=== PATIENT | male | born 1945 | race Caucasian/White ===

== ENCOUNTER 2018-09-25 17:18 | Inpatient (IN) ==
--- NOTE | 2018-09-25 17:24 | Emergency Department Note ---
Disposition Clinical Impression: Chest pain Qualifiers: Chest pain type: unspecified Qualified Code(s): R07.9 - Chest pain, unspecified Disposition: Admitted As Inpatient Condition: Good Referrals: Cami Jorgensen CNP [Primary Care Provider] - Time of Disposition: 19:03 General Adult HPI - General Stated complaint: CP/SOB Time Seen by Provider: 09/25/18 17:21 Source: patient Nursing Notes Reviewed: Yes Vital Signs Reviewed: Yes - History of Present Illness HPI Narrative: Male patient sitting complaints from complaining of a 2 to three-day history of left-sided chest pain. He cannot describe the type of pain. He states it is not radiating anywhere. It started whenever he was sitting in a chair resting. Does have history of congestive heart failure. Never had stents. Does have a history of hypertension was a previous smoker several years ago. He does report dyspnea on exertion states he does not walk very far anyhow secondary to his legs just being weak. Patient states that he cannot get relief from the pain with changing positions. Nothing exacerbates the pain. - Related Data Home Medications Medication Instructions Recorded Confirmed Aspirin [Lo-Dose Aspirin EC] 81 mg PO DAILY 11/20/17 07/02/18 Furosemide [Lasix] 40 mg PO BID 11/20/17 07/02/18 Gabapentin [Neurontin] 600 mg PO BID 11/20/17 07/02/18 Losartan/Hydrochlorothiazide 1 tab PO DAILY 11/20/17 07/02/18 [Losartan-Hctz 100-25 mg Tab] Metformin HCl [Glucophage] 1,000 mg PO BID 11/20/17 07/02/18 Metoprolol [Lopressor] 50 mg PO BID 11/20/17 07/02/18 Oxycodone HCl/Acetaminophen 1 tab PO Q6H PRN 11/20/17 07/02/18 [Percocet 5-325 mg Tablet] Pravastatin Sodium [Pravachol] 40 mg PO DAILY 11/20/17 07/02/18 Warfarin [Coumadin] 8 mg PO SUMOTUWETHFRSA 11/20/17 07/02/18 Carbidopa/Levodopa 25/100 [Sinemet 1 tab PO 0800,1200,1600 07/02/18 07/02/18 25/100] Cholecalciferol (D-3) [Vitamin D] 2,000 unit PO DAILY 07/02/18 07/02/18 Allergies Allergy/AdvReac Type Severity Reaction Status Date / Time fenofibrate [From Tricor] AdvReac See Verified 12/11/17 13:46 Comments naproxen AdvReac See Verified 12/11/17 13:46 Comments All systems ED: reviewed and negative except as stated. Review of Systems: As Per HPI Constitutional: Denies: fever, chills Cardiovascular: Reports: chest pain. Denies: palpitations, syncope Respiratory: Denies: cough, dyspnea Gastrointestinal: Denies: abdominal pain, nausea, vomiting, diarrhea Genitourinary: Denies: urgency, frequency Past Medical History - Past Medical History Attestation: Yes The following information was validated with the patient. Source: patient Medical history: Reports: arthritis, atrial fibrillation, cancer, CHF, diabetes, hyperlipidemia, hypertension, other Surgical history: Reports: appendectomy, cancer surgery, herniorrhaphy Psychiatric history: Reports: no psych history - Social History Smoking Status: Unknown if ever smoked Smokeless Tobacco Status: No Alcohol use: Reports: none Drug use: Reports: none Physical Exam - General Limitations: no limitations General appearance: alert, in no apparent distress - Head Head exam: atraumatic, normocephalic, normal inspection - Eye Eye exam: Present: normal appearance, PERRL, EOMI - ENT ENT exam: normal exam, normal oropharynx, mucous membranes moist - Neck Neck exam: Present: normal inspection, full ROM, trachea midline - Chest Chest inspection: Present: normal inspection, symmetric chest wall rise - Respiratory Respiratory exam: Present: normal lung sounds bilaterally. Absent: respiratory distress, accessory muscle use - Cardiovascular Cardiovascular exam: Present: normal rhythm, irregular rhythm, normal heart sounds - Abdominal Exam Abdominal exam: Present: soft, Non-Tender. Absent: tenderness, distention, guarding, rebound, rigidity, organomegaly - Extremities Exam Extremities exam: Present: normal inspection, full ROM, normal capillary refill, pedal edema (Pitting bilaterally.). Absent: tenderness - Back Exam Back exam: Present: normal inspection, full ROM. Absent: tenderness - Neurological Exam Neurological exam: Present: alert, oriented X3 - Psychiatric Psychiatric exam: Present: normal affect, normal mood - Skin Skin exam: Present: warm, dry, intact, normal color. Absent: rash, cyanosis, diaphoresis Course Course Narrative: Male patient presenting to emergency department complaining of left-sided chest pain. Cannot describe what type of pain is his. This did resolve after 2 nitroglycerin. Patient is conversant and laughing. Lung sounds are clear. He does develop mild cardiomegaly as well as pulmonary congestion on chest x-ray he does have pitting edema bilaterally to his lower extremities. This is rather significant. States he does take of "fluid pill for this." Denies any decrease in urination. EKG did show a right bundle branch block. He is in A. fib with a history of A. fib. Currently on Coumadin and is therapeutic. We will admit patient to the hospital for ACS workup. He is agreeable with this at this time. Vital Signs Temperature 97.7 F 09/25/18 17:25 Pulse Rate 75 09/25/18 17:25 Respiratory Rate 16 09/25/18 17:25 Blood Pressure 200/93 09/25/18 17:25 O2 Sat by Pulse Oximetry 92 09/25/18 17:25 Temperature 97.7 F 09/25/18 17:25 Pulse Rate 59 09/25/18 18:48 Respiratory Rate 16 09/25/18 18:48 Blood Pressure 144/72 09/25/18 18:48 O2 Sat by Pulse Oximetry 99 09/25/18 18:48 Oxygen Delivery Oxygen Delivery Room Air Medical Decision Making - Medical Records Medical records reviewed: Yes I reviewed the patient's medical records. - Lab Data Lab results reviewed: Yes I reviewed the patient's lab results. Result diagrams: 09/25/18 17:38 09/25/18 17:38 Lab Results 09/25/18 09/25/18 09/25/18 Range/Units 17:38 17:38 17:40 WBC 6.8 (4.3-11.1) K/mcL RBC 5.10 (4.19-5.50) M/mcL Hgb 14.4 (12.9-16.9) g/dL Hct 42.0 (37.5-50.1) % MCV 82.4 L (83.0-100.0) fL MCH 28.2 (28.0-33.3) pg MCHC 34.3 (31.6-35.5) g/dL RDW 15.0 H (11.5-14.5) % Plt Count 182 (140-400) K/mcL MPV 9.2 L (9.4-12.4) fL Immature Gran % 0.3 (0-4) % Seg Neutrophils % 63.6 % Lymphocytes % 21.6 % Monocytes % 9.5 % Eosinophils % 4.4 % Basophils % 0.6 % Neutrophils # 4.3 (1.6-8.9) K/mcL Lymphocytes # 1.5 (0.6-4.6) K/mcL Monocytes # 0.6 (0.0-1.3) K/mcL Eosinophils # 0.3 (0.0-0.6) K/mcL Basophils # 0.0 (0.0-0.2) K/mcL PT 31.4 H (9.4-12.1) Seconds INR 2.8 APTT 57.8 H (26.0-36.0) Seconds Sodium 137 (136-145) mEq/L Potassium 3.8 (3.5-5.1) mEq/L Chloride 98 (98-107) mEq/L Carbon Dioxide 28 (23-29) mEq/L BUN 27 H (8-23) mg/dL Creatinine 1.29 (0.70-1.30) mg/dL Est GFR ( Amer) > 60 (> 60) Est GFR (Non-Af Amer) 54 L (> 60) BUN/Creatinine Ratio 21 (6-26) Glucose 226 H (70-105) mg/dL Calculated Osmolality 296 (280-300) Calcium 9.5 (8.6-10.3) mg/dL Troponin I < 0.03 (< 0.04) ng/mL B-Natriuretic Peptide (Less than 100) pg/mL 09/25/18 Range/Units 17:40 WBC (4.3-11.1) K/mcL RBC (4.19-5.50) M/mcL Hgb (12.9-16.9) g/dL Hct (37.5-50.1) % MCV (83.0-100.0) fL MCH (28.0-33.3) pg MCHC (31.6-35.5) g/dL RDW (11.5-14.5) % Plt Count (140-400) K/mcL MPV (9.4-12.4) fL Immature Gran % (0-4) % Seg Neutrophils % % Lymphocytes % % Monocytes % % Eosinophils % % Basophils % % Neutrophils # (1.6-8.9) K/mcL Lymphocytes # (0.6-4.6) K/mcL Monocytes # (0.0-1.3) K/mcL Eosinophils # (0.0-0.6) K/mcL Basophils # (0.0-0.2) K/mcL PT (9.4-12.1) Seconds INR APTT (26.0-36.0) Seconds Sodium (136-145) mEq/L Potassium (3.5-5.1) mEq/L Chloride (98-107) mEq/L Carbon Dioxide (23-29) mEq/L BUN (8-23) mg/dL Creatinine (0.70-1.30) mg/dL Est GFR ( Amer) (> 60) Est GFR (Non-Af Amer) (> 60) BUN/Creatinine Ratio (6-26) Glucose (70-105) mg/dL Calculated Osmolality (280-300) Calcium (8.6-10.3) mg/dL Troponin I (< 0.04) ng/mL B-Natriuretic Peptide 250 H (Less than 100) pg/mL - Radiology Data Radiology results reviewed: Yes I reviewed the patient's radiology results. Chest X-Ray 09/25/18 17:38 IMPRESSION: 1. Cardiomegaly with findings suggesting mild pulmonary edema. D/ / Adelso Pires MD / Adelso Pires MD Interpreting Provider: Adelso Pires MD - EKG Data EKG #1 EKG attestation: Yes I reviewed and interpreted this EKG. EKG results narrative: A. fib at a rate of 67. MN interval is a 96. QRS duration is 125. QT is 435. QTC is 428. No signs of acute ischemia. Patient does have a right bundle branch block. Does appear this was present on previous EKG dated 05/13/2017. Attestation Statement - Attestation Attestation: Patient was seen with resident physician. I reviewed the history, physical, assessment and plan, and agree with the findings. I also personally evaluated this patient and had [id number] time with this patient. 73-year-old male presents emergency Department with chest pain. Patient states the pain started several days ago. It is more of a soreness in the left side of his chest. Pain does not radiate. Patient denies shortness of breath nausea vomiting or diarrhea. Patient states she is a history of CHF. No specific heart issues or stents. The cardiac surgery. He does have dyspnea on exertion which she says is not new for him and has not changed. He has a long history of smoking. Review of systems as above remainder negative. Physical exam vital signs are stable. ENT is unremarkable. Heart regular rhythm and rate. Lungs clear. Abdomen is soft and nontender. Extremities are unremarkable. Neurologically intact. Skin no rashes and psych normal. ED course we will treat the patient with aspirin and nitroglycerin. EKG showed no acute ischemic changes. Troponin was negative other labs are unremarkable. We will admit the patient to the hospital service for additional evaluation and treatment for chest pain. Hemodynamically the patient remained stable while in the emergency department. Symptoms were improved after 2 nitroglycerin. Considering the patient's risk factors we felt hospitalization was indicated. Hospitalist service was notified and agreed to accept the patient. Agree with resident physician assessment and plan. Heart Score - Score History: Moderately Suspicious EKG: Non Specific repolarisation Disturbance Age: Greater than 65 Risk Factors: Equal/Greater than 3 risk factor or history of atherosclerotic disease Troponin: Less than normal limit HEART Score Total: 6
[2018-09-25] MEDS ORDERED: Nitroglycerin 0.4 MG TAB.SUBL SL ONE (17:40)
[2018-09-25] MEDS ORDERED: Aspirin 81 MG TAB.CHEW PO ONE (17:40)
[2018-09-25 18:03] LABS: Basophils % 0.6 %; Eosinophils # 0.3 K/mcL (0.0-0.6); Eosinophils % 4.4 %; Hemoglobin 14.4 g/dL (12.9-16.9); Immature Granulocytes % 0.3 % (0-4); Lymphocytes # 1.5 K/mcL (0.6-4.6); Lymphocytes % 21.6 %; Mean Corpuscular HGB Conc 34.3 g/dL (31.6-35.5); Mean Corpuscular Hemoglobin 28.2 pg (28.0-33.3); Mean Corpuscular Volume 82.4 fL (83.0-100.0); Mean Platelet Volume 9.2 fL (9.4-12.4); Monocytes # 0.6 K/mcL (0.0-1.3); Monocytes % 9.5 %; Neutrophils # 4.3 K/mcL (1.6-8.9); Platelet Count 182 K/mcL (140-400); Segmented Neutrophils % 63.6 %
[2018-09-25 18:10] LABS: INR 2.8; Prothrombin Time 31.4 Seconds (9.4-12.1)
[2018-09-25 18:13] LABS: Activated Partial Thrombo Time 57.8 Seconds (26.0-36.0)
[2018-09-25 18:24] LABS: BUN/Creatinine Ratio 21 (6-26); Blood Urea Nitrogen 27 mg/dL (8-23); Calcium 9.5 mg/dL (8.6-10.3); Carbon Dioxide 28 mEq/L (23-29); Chloride 98 mEq/L (98-107); Glucose 226 mg/dL (70-105); Osmolality,Calculated 296 (280-300); Potassium 3.8 mEq/L (3.5-5.1); Sodium 137 mEq/L (136-145); eGFR For Non-African Americans 54 (> 60)
[2018-09-25 18:25] LABS: Troponin I < 0.03 ng/mL (< 0.04)
[2018-09-25] MEDS ORDERED: Dextrose Gel 15 GM/37.5 ML TUBE PO PRN ×2 (19:48)
[2018-09-25] MEDS ORDERED: *HR* Dextrose 50 % in Water (Syg) 50 ML SYRINGE IVP PRN (19:48)
--- NOTE | 2018-09-25 20:23 | Internal Med History&Physical ---
Date of Encounter: 09/25/18 Time of Encounter: 20:18 Internal Medicine - H&P: HPI Chief complaint: chest pain Admitted From: Home Plans for Post Hospital Care: Home History of present illness: Марина Stuart is a 73-year-old obese white male who has atrial fibrillation on warfarin, hypertension and type 2 diabetes presenting to the ER with the complaint of chest pain that has been present for the past 3 days. He localizes the pain to his precordium and says it is a fixed pressure sensation with no radiation and no exacerbating or ameliorating features observed. There was no prandial correlation. He felt as though it got worse even today which is what prompted him to come to the emergency room. He denied accompanying shortness of breath but does admit to increasing pedal edema. He reports ad herence to his medications. He acknowledges having had a stress test in the past but this was well over 6 years ago. He denies a history of CAD. In the ER he was seen clinically and hemodynamically stable. His chest pain resolved after 2 nitroglycerin tablets and he was also given a loading dose of aspirin. 6 EKG showed atrial fibrillation and a right bundle branch block which is unchanged from prior. He is admitted for ongoing observation. At this time he reports feeling well and has no other complaints. Past Med Surg Social Fam HX - Past Medical History Medical history: arthritis, atrial fibrillation, cancer, CHF, diabetes, hyperlipidemia, hypertension, other Psychiatric history: no psych history - Past Surgical History Surgical History: appendectomy, cancer surgery, herniorrhaphy Additional surgical history: Carpal tunnel surgery in November 2017 on both arms. - Social History Smoking Status: Unknown if ever smoked Smokeless Tobacco Status: No Alcohol use: none Drug use: none - Family History Mother Adopted: No Family Member Ethnicity: Non- Living Status: Hx Family Cardiac Disorders: No Hx Family Respiratory Disorders: No Hx Family Cancer: Yes Hx Family GI Disorders: No Hx Family Endocrine Disorder: No Hx Family Neuromuscular Disorders: No Hx Family Neurologic Disorders: No Hx Family HEENT Disorders: No Hx Family Autoimmune Disorders: No Father Adopted: No Family Member Ethnicity: Non- Living Status: Hx Family Cardiac Disorders: Yes Hx Family Respiratory Disorders: No Hx Family Cancer: No Hx Family GI Disorders: No Hx Family Endocrine Disorder: No Hx Family Neuromuscular Disorders: No Hx Family Neurologic Disorders: No Hx Family HEENT Disorders: No Hx Family Autoimmune Disorders: No Internal Medicine - H&P: Meds Aspirin [Lo-Dose Aspirin EC] 81 mg PO DAILY 11/20/17 [History] Furosemide [Lasix] 40 mg PO BID 11/20/17 [History] Gabapentin [Neurontin] 600 mg PO BID 11/20/17 [History] Losartan/Hydrochlorothiazide [Losartan-Hctz 100-25 mg Tab] 1 tab PO DAILY 11/20/17 [History] Metformin HCl [Glucophage] 1,000 mg PO BID 11/20/17 [History] Metoprolol [Lopressor] 50 mg PO BID 11/20/17 [History] Oxycodone HCl/Acetaminophen [Percocet 5-325 mg Tablet] 1 tab PO Q6H PRN 11/20/17 [History] Pravastatin Sodium [Pravachol] 40 mg PO DAILY 11/20/17 [History] Warfarin [Coumadin] 8 mg PO SUMOTUWETHFRSA 11/20/17 [History] Carbidopa/Levodopa 25/100 [Sinemet 25/100] 1 tab PO 0800,1200,1600 07/02/18 [History] Cholecalciferol (D-3) [Vitamin D] 2,000 unit PO DAILY 07/02/18 [History] Allergy/AdvReac Type Severity Reaction Status Date / Time fenofibrate [From Tricor] AdvReac See Verified 12/11/17 13:46 Comments naproxen AdvReac See Verified 12/11/17 13:46 Comments All Systems PM: A 10-system review of systems was performed and is negative for pertinent findings except as documented above in the HPI. - Constitutional Vitals: Temp Pulse Resp BP Pulse Ox 97.5 F L 58 16 184/83 96 09/25/18 20:11 09/25/18 20:11 09/25/18 20:11 09/25/18 20:11 09/25/18 20:11 Exam: Vitals: Reviewed General: Obese white male sitting up in bed in NAD Skin: Flushed, multiple excoriations. HEENT: Moist mucous membranes. No conjunctivae pallor. Neck: No lymphadenopathy. No JVD. No carotid bruits. No palpable thyroid. Chest: Normal thoracic expansion. Diminished breath sounds bilaterally. Heart: Irregularly irregular. Abdomen: soft and non-tender to palpation. Extremities: 3+ pitting edema with mild erythema bilaterally, non-tender, normothermic. Neurological: Awake, alert and oriented to person, place and time. No focal deficits. B/l hand tremor noted. Psych: Affect appropriate. Internal Med - H&P Results - Labs CBC & Chem 7: 09/25/18 17:38 09/25/18 17:38 Labs: Short CBC 09/25/18 Range/Units 17:38 WBC 6.8 (4.3-11.1) K/mcL Hgb 14.4 (12.9-16.9) g/dL Hct 42.0 (37.5-50.1) % Plt Count 182 (140-400) K/mcL Neutrophils # 4.3 (1.6-8.9) K/mcL BMP 09/25/18 17:38 Sodium 137 Potassium 3.8 Chloride 98 Carbon Dioxide 28 BUN 27 H Creatinine 1.29 Glucose 226 H Calcium 9.5 Cardiac Enzymes 09/25/18 Range/Units 17:38 Troponin I < 0.03 (< 0.04) ng/mL - Impressions ITS Impressions Chest X-Ray 09/25/18 17:38 IMPRESSION: 1. Cardiomegaly with findings suggesting mild pulmonary edema. D/ / Adelso Pires MD / Adelso Pires MD Interpreting Provider: Adelso Pires MD - Assessment and plan (1) Chest pain Current Visit: Yes Status: Acute Assessment and plan: The patient has a moderate risk of ACS based on his HEART score and warrants observation. Will place on telemetry and repeat troponins. Will also obtain a TTE in the morning and schedule him for a stress test. He has received loading dose of ASA and will continue his regular daily dose. Qualifiers: Chest pain type: unspecified Qualified Code(s): R07.9 - Chest pain, unspecified (2) Bilateral leg edema Current Visit: Yes Status: Acute Assessment and plan: Concerned that there may be a component of alberts failure given the associated shortness of breath and xray findings suggestive of pulmonary vascular congestion. BNP is only 250 but his obesity may preclude its true value. Will assess cardiac function with an echo. Start furosemide IVP 40mg BID. (3) Afib Current Visit: Yes Status: Acute Assessment and plan: On warfarin; therapeutic INR. Continue warfarin. Qualifiers: Atrial fibrillation type: chronic Qualified Code(s): I48.2 - Chronic atrial fibrillation (4) Tremor due to disorder of central nervous system Current Visit: Yes Status: Acute Assessment and plan: Unclear etiology but as per he was Rx medications for Parkinson's but has not been officially diagnosed with it. Unclear it is is helping him. (5) Diabetes Current Visit: Yes Status: Chronic Assessment and plan: He takes metformin. Will check an A1C to assess control. Place on insulin sliding scale for now. Qualifiers: Diabetes mellitus type: type 2 Diabetes mellitus [facility] insulin use: without bead cutter use Diabetes mellitus complication status: with unspecified complications Qualified Code(s): E11.8 - Type 2 diabetes mellitus with unspecified complications (6) Arthritis Current Visit: Yes Status: Chronic Assessment and plan: He is on oxycodone/apap prn. Will continue. - Time Spent With Patient Total time spent is greater than 50% in coordination of care (as documented) at patient's floor/unit and/or counseling patient: Greater than 35 minutes
[2018-09-25] MEDS ORDERED: Furosemide 40 MG TABLET PO SCH (21:00)
[2018-09-25] MEDS: Insulin LISPRO 300 UNITS/3 ML VIAL SQ SCH (22:29)
[2018-09-25] MEDS: Furosemide 40 MG/4 ML VIAL IVP SCH ×2 (22:30→22:55)
[2018-09-25] MEDS: Gabapentin 300 MG CAPSULE PO SCH (22:30)
[2018-09-26] MEDS: *HR* OxyCODONE/APAP 5/325 TABLET PO PRN ×3 (00:42→20:11)
[2018-09-26] MEDS ORDERED: Regadenoson 0.4 MG/5 ML SYRINGE IVP ONE (07:09)
[2018-09-26] MEDS ORDERED: Losartan/HCTZ 50-12.5 TABLET PO SCH (09:00)
[2018-09-26] MEDS: Insulin LISPRO 300 UNITS/3 ML VIAL SQ SCH ×4 (09:31→20:17)
[2018-09-26] MEDS: Furosemide 40 MG/4 ML VIAL IVP SCH ×2 (09:33→17:02)
[2018-09-26] MEDS: Carbidopa/Levodopa 25/100 TABLET PO SCH ×3 (09:33→17:02)
[2018-09-26] MEDS: Aspirin Enteric Coated 81 MG Tablet PO SCH (09:33)
[2018-09-26] MEDS: Gabapentin 300 MG CAPSULE PO SCH ×2 (09:34→20:11)
[2018-09-26] MEDS: Cholecalciferol (D-3) 1,000 UNIT TABLET PO SCH (09:34)
--- NOTE | 2018-09-26 09:35 | Internal Med Progress Note ---
Hospitalist Progress Note - Encounter Date of Encounter: 09/26/18 Time of Encounter: 09:28 - Subjective Interval History: Patient seen and examined this morning. No acute overnight events. Denies new complains. Currently without chest pain. Gets shortness of breath over past few days while lying flat. Denies fever, chills, N/V/D. - Exam Vitals: Temp Pulse Resp BP Pulse Ox 98.2 F 63 18 146/55 95 09/26/18 07:58 09/26/18 07:58 09/26/18 07:58 09/26/18 07:58 09/26/18 07:58 Exam: General: In no acute distress. Conversant. Obese. Respiratory exam: no accessory muscle use, rhonchi, wheezes. Rales bilaterally at base till mid lung field. Cardiovascular exam: irregular, +S1, +S2. no murmur, gallop, rubs. GI/Abdominal exam: Obese, Non-tender, Non-distended, normal bowel sounds, soft, no peritoneal signs. Extremities exam: full ROM, 3+ pedal edema b/l, no calf tenderness Neurological exam: CN II-XII intact, AO X3, no focal deficits. tremors noted Skin exam: No skin rash, ulcer, purpura or ecchymosis. - Assessment and Plan (1) Chest pain Current Visit: Yes Status: Acute (2) Bilateral leg edema Current Visit: Yes Status: Acute (3) Afib Current Visit: Yes Status: Acute (4) Tremor due to disorder of central nervous system Current Visit: Yes Status: Acute (5) Arthritis Current Visit: Yes Status: Chronic (6) Diabetes Current Visit: Yes Status: Chronic - Summary of Assessment and Plan Summary of Assessment and Plan: Atypical Chest pain - currently chest pain free - trop negative x3 - f/u TTE - c/w ASA - Will hold stress for now given CHF. Will differ stress test as outpatient Bilateral leg edema and PND - Patient in CHF with elelvated BNP and volume overload with PND - c/w IV lasix - monitor I/O and weight Afib - c/w metoprolol for rate control and AC with warfarin. pharmacy to dose warfarin CKD - creatinine appears at baseline Tremor due to disorder of central nervous system - Unclear etiology - on medications for Parkinson's - continue for now - f/u outpatient Diabetes - f/u A1C to assess control. - c/w accuchecks and sliding scale insulin Arthritis - c/w home medications - Time Spent with Patient Total time spent is greater than 50% in coordination of care (as documented) at patient's floor/unit and/or counseling patient: Internal Medicine: Result - Labs CBC & Chem 7: 09/25/18 17:38 09/25/18 17:38 Labs: Short CBC 09/25/18 Range/Units 17:38 WBC 6.8 (4.3-11.1) K/mcL Hgb 14.4 (12.9-16.9) g/dL Hct 42.0 (37.5-50.1) % Plt Count 182 (140-400) K/mcL Neutrophils # 4.3 (1.6-8.9) K/mcL BMP 09/25/18 17:38 Sodium 137 Potassium 3.8 Chloride 98 Carbon Dioxide 28 BUN 27 H Creatinine 1.29 Glucose 226 H Calcium 9.5 Cardiac Enzymes 09/25/18 09/25/18 09/26/18 Range/Units 17:38 23:45 03:49 Troponin I < 0.03 < 0.03 < 0.03 (< 0.04) ng/mL - ABG Interpretation ABG results: PT/INR, D-dimer PT 34.0 Seconds (9.4-12.1) H 09/26/18 03:49 - Impressions Impressions Chest X-Ray 09/25/18 17:38 IMPRESSION: 1. Cardiomegaly with findings suggesting mild pulmonary edema. D/ / Adelso Pires MD / Adelso Pires MD Interpreting Provider: Adelso Pires MD Consult Discharge Plan - Plan (1) Chest pain Qualifiers: Chest pain type: unspecified Qualified Code(s): R07.9 - Chest pain, unspecified (3) Afib Qualifiers: Atrial fibrillation type: chronic Qualified Code(s): I48.2 - Chronic atrial fibrillation (6) Diabetes Qualifiers: Diabetes mellitus type: type 2 Diabetes mellitus intermediate card tender insulin use: without penitentiary use Diabetes mellitus complication status: with unspecified complications Qualified Code(s): E11.8 - Type 2 diabetes mellitus with unspecified complications
[2018-09-26] MEDS ORDERED: Warfarin perPT PO PRN (18:00)
[2018-09-27 04:40] LABS: INR 1.7; Prothrombin Time 19.6 Seconds (9.4-12.1)
[2018-09-27 04:55] LABS: Calcium 9.4 mg/dL (8.6-10.3); Potassium 3.3 mEq/L (3.5-5.1)
[2018-09-27] MEDS ORDERED: Regadenoson 0.4 MG/5 ML SYRINGE IVP ONE (06:04)
[2018-09-27] MEDS: *HR* OxyCODONE/APAP 5/325 TABLET PO PRN ×2 (07:26→17:02)
[2018-09-27] MEDS: Aspirin Enteric Coated 81 MG Tablet PO SCH (09:18)
[2018-09-27] MEDS: Cholecalciferol (D-3) 1,000 UNIT TABLET PO SCH (09:18)
[2018-09-27] MEDS: Insulin LISPRO 300 UNITS/3 ML VIAL SQ SCH ×4 (09:19→20:35)
[2018-09-27] MEDS: Carbidopa/Levodopa 25/100 TABLET PO SCH ×3 (09:19→17:02)
[2018-09-27] MEDS: Gabapentin 300 MG CAPSULE PO SCH ×2 (09:19→20:33)
[2018-09-27] MEDS: Furosemide 40 MG/4 ML VIAL IVP SCH (09:19)
--- NOTE | 2018-09-27 10:40 | Internal Med Progress Note ---
Hospitalist Progress Note - Encounter Date of Encounter: 09/27/18 Time of Encounter: 08:24 - Subjective Interval History: Patient seen and examined this morning. No acute overnight events. Denies new complains. Breathing much improved. Denies chest pain, fever, chills, N/V/D. - Exam Vitals: Temp Pulse Resp BP Pulse Ox 98.0 F 59 16 136/81 97 09/27/18 07:14 09/27/18 07:14 09/27/18 07:14 09/27/18 07:14 09/27/18 09:52 Exam: General: In no acute distress. Conversant. Obese. Respiratory exam: no accessory muscle use, rhonchi, wheezes. Rales bilaterally at base till. improved aeration Cardiovascular exam: irregular, +S1, +S2. no murmur, gallop, rubs. GI/Abdominal exam: Obese, Non-tender, Non-distended, normal bowel sounds, soft, no peritoneal signs. Extremities exam: full ROM, 2+ pedal edema b/l, no calf tenderness Neurological exam: CN II-XII intact, AO X3, no focal deficits. tremors noted Skin exam: No skin rash, ulcer, purpura or ecchymosis. - Assessment and Plan (1) Chest pain Current Visit: Yes Status: Acute (2) Bilateral leg edema Current Visit: Yes Status: Acute (3) Afib Current Visit: Yes Status: Acute (4) Tremor due to disorder of central nervous system Current Visit: Yes Status: Acute (5) Arthritis Current Visit: Yes Status: Chronic (6) Diabetes Current Visit: Yes Status: Chronic - Summary of Assessment and Plan Summary of Assessment and Plan: Atypical Chest pain - currently chest pain free - trop negative x3 - f/u TTE - c/w ASA, stain - Will hold stress for now given CHF. Will differ stress test as outpatient Bilateral leg edema and PND - Acute on chronic diastolic heart failure - Patient with CHF with elelvated BNP and volume overload with PND - c/w IV lasix. Will decrease lasix today given worsening renal function - monitor I/O and weight Afib - c/w metoprolol for rate control and AC with warfarin. pharmacy to dose warfarin CKD - creatinine appears at baseline YI on CKD - Likely related to diuresis and on HCTZ/Losartan - Hold losartan and decrease lasix. Tremor due to disorder of central nervous system - Unclear etiology - on medications for Parkinson's - continue for now - f/u outpatient Diabetes - c/w accuchecks and sliding scale insulin Arthritis - c/w home medications DVT ppx - on coumadin - Time Spent with Patient Total time spent is greater than 50% in coordination of care (as documented) at patient's floor/unit and/or counseling patient: Internal Medicine: Result - Labs CBC & Chem 7: 09/25/18 17:38 09/27/18 03:21 Labs: BMP 09/27/18 03:21 Sodium 137 Potassium 3.3 L Chloride 97 L Carbon Dioxide 30 H BUN 34 H Creatinine 1.50 H Glucose 259 H Calcium 9.4 - ABG Interpretation ABG results: PT/INR, D-dimer PT 19.6 Seconds (9.4-12.1) H 09/27/18 03:21 Consult Discharge Plan - Plan Referrals: Cami Jorgensen, BONDING MACHINE TENDER [Primary Care Provider] - (1) Chest pain Qualifiers: Chest pain type: unspecified Qualified Code(s): R07.9 - Chest pain, unspecified (3) Afib Qualifiers: Atrial fibrillation type: chronic Qualified Code(s): I48.2 - Chronic atrial fibrillation (6) Diabetes Qualifiers: Diabetes mellitus type: type 2 Diabetes mellitus supervisor brew house insulin use: without senior care use Diabetes mellitus complication status: with unspecified complications Qualified Code(s): E11.8 - Type 2 diabetes mellitus with unspecified complications
[2018-09-27] MEDS ORDERED: Nitroglycerin 0.4 MG TAB.SUBL SL PRN (12:28)
--- NOTE | 2018-09-27 17:30 | Electrocardiograph Report ---
[place] [address] Test Date: 2018-09-25 Pat Name: Марина Stuart Department: EXAM10 Room: 3B Gender: M Cnc Specialist: : 1945 Requested By: Disha Freed Order Number: [id number] Reading MD: Mahi Lacey Measurements Intervals [place] Rate: 67 P: MS: QRS: -59 QRSD: 125 T: 44 QT: 435 QTc: 428 Interpretive Statements Atrial fibrillation RBBB and LAFB Electronically Signed On 09-27-2018 17:28:19 EST by Mahi Lacey
[2018-09-27] MEDS ORDERED: *HR* Warfarin 4 MG TABLET PO ONE (18:00)
[2018-09-28] MEDS: *HR* OxyCODONE/APAP 5/325 TABLET PO PRN ×2 (01:29→15:11)
[2018-09-28 04:49] LABS: INR 1.4; Prothrombin Time 16.2 Seconds (9.4-12.1)
[2018-09-28 05:06] LABS: BUN/Creatinine Ratio 24 (6-26); Blood Urea Nitrogen 33 mg/dL (8-23); Calcium 9.3 mg/dL (8.6-10.3); Carbon Dioxide 30 mEq/L (23-29); Chloride 100 mEq/L (98-107); Glucose 195 mg/dL (70-105); Osmolality,Calculated 301 (280-300); Potassium 3.9 mEq/L (3.5-5.1); Sodium 139 mEq/L (136-145); eGFR For Non-African Americans 51 (> 60)
[2018-09-28] MEDS: Gabapentin 300 MG CAPSULE PO SCH ×2 (07:54→21:07)
[2018-09-28] MEDS: Furosemide 40 MG/4 ML VIAL IVP SCH (07:54)
[2018-09-28] MEDS: Aspirin Enteric Coated 81 MG Tablet PO SCH (07:54)
[2018-09-28] MEDS: Cholecalciferol (D-3) 1,000 UNIT TABLET PO SCH (07:54)
[2018-09-28] MEDS: Insulin LISPRO 300 UNITS/3 ML VIAL SQ SCH ×4 (08:05→21:06)
[2018-09-28] MEDS: Carbidopa/Levodopa 25/100 TABLET PO SCH ×3 (08:10→17:24)
--- NOTE | 2018-09-28 10:50 | Internal Med Progress Note ---
Hospitalist Progress Note - Encounter Date of Encounter: 09/28/18 Time of Encounter: 08:59 - Subjective Interval History: Patient seen and examined this morning. No acute overnight events. Denies new complains. Breathing much improved. Denies chest pain, fever, chills, N/V/D. - Exam Vitals: Temp Pulse Resp BP Pulse Ox 98.2 F 60 15 157/80 96 09/28/18 07:07 09/28/18 07:07 09/28/18 07:07 09/28/18 07:07 09/28/18 07:07 - Assessment and Plan (1) Chest pain Current Visit: Yes Status: Acute (2) Bilateral leg edema Current Visit: Yes Status: Acute (3) Afib Current Visit: Yes Status: Acute (4) Tremor due to disorder of central nervous system Current Visit: Yes Status: Acute (5) Arthritis Current Visit: Yes Status: Chronic (6) Diabetes Current Visit: Yes Status: Chronic - Time Spent with Patient Total time spent is greater than 50% in coordination of care (as documented) at patient's floor/unit and/or counseling patient: Internal Medicine: Result - Labs CBC & Chem 7: 09/25/18 17:38 09/28/18 03:59 Labs: BMP 09/28/18 03:59 Sodium 139 Potassium 3.9 Chloride 100 Carbon Dioxide 30 H BUN 33 H Creatinine 1.36 H Glucose 195 H Calcium 9.3 Cardiac Enzymes 09/27/18 09/27/18 Range/Units 12:51 18:47 Troponin I < 0.03 < 0.03 (< 0.04) ng/mL - ABG Interpretation ABG results: PT/INR, D-dimer PT 16.2 Seconds (9.4-12.1) H 09/28/18 03:59 Consult Discharge Plan - Plan Referrals: Cami Jorgensen, IS/IT PROJECT MANAGER [Primary Care Provider] - 10/05/18 10:00 am (1) Chest pain Qualifiers: Chest pain type: unspecified Qualified Code(s): R07.9 - Chest pain, unspecified (3) Afib Qualifiers: Atrial fibrillation type: chronic Qualified Code(s): I48.2 - Chronic atrial fibrillation (6) Diabetes Qualifiers: Diabetes mellitus type: type 2 Diabetes mellitus detention insulin use: without intermediate designer use Diabetes mellitus complication status: with unspecified complications Qualified Code(s): E11.8 - Type 2 diabetes mellitus with unspecified complications
--- NOTE | 2018-09-28 11:04 | Internal Med Progress Note ---
Hospitalist Progress Note - Encounter Date of Encounter: 09/28/18 Time of Encounter: 09:20 - Subjective Interval History: Patient seen and examined this morning. No acute overnight events. Breathing improved. Denies chest pain, fever, chills, N/V/D. Leg swelling improving. - Exam Vitals: Temp Pulse Resp BP Pulse Ox 98.2 F 60 15 157/80 96 09/28/18 07:07 09/28/18 07:07 09/28/18 07:07 09/28/18 07:07 09/28/18 07:07 Exam: General: In no acute distress. Conversant. Obese. Respiratory exam: no accessory muscle use, rhonchi, wheezes. CTAB Cardiovascular exam: irregular, +S1, +S2. no murmur, gallop, rubs. GI/Abdominal exam: Obese, Non-tender, Non-distended, normal bowel sounds, soft, no peritoneal signs. Extremities exam: full ROM, 2+ pedal edema b/l, no calf tenderness Neurological exam: CN II-XII intact, AO X3, no focal deficits. tremors noted Skin exam: No skin rash, ulcer, purpura or ecchymosis. - Assessment and Plan (1) Chest pain Current Visit: Yes Status: Acute (2) Bilateral leg edema Current Visit: Yes Status: Acute (3) Afib Current Visit: Yes Status: Acute (4) Tremor due to disorder of central nervous system Current Visit: Yes Status: Acute (5) Arthritis Current Visit: Yes Status: Chronic (6) Diabetes Current Visit: Yes Status: Chronic - Summary of Assessment and Plan Summary of Assessment and Plan: Atypical Chest pain - currently chest pain free - trop negative x3 - f/u TTE - c/w ASA, stain - Will hold stress for now given CHF. Will differ stress test as outpatient Bilateral leg edema and PND - Acute on chronic diastolic heart failure - Patient with CHF with elelvated BNP and volume overload with PND - c/w IV lasix. - monitor I/O and weight Afib - c/w metoprolol for rate control and AC with warfarin. pharmacy to dose warfarin. INR subtherapeutic today. YI on CKD - Likely related to diuresis and on HCTZ/Losartan - Hold losartan - c/w lasix. Tremor due to disorder of central nervous system - Unclear etiology - on medications for Parkinson's - continue for now - f/u outpatient Diabetes - c/w accuchecks and sliding scale insulin Arthritis - c/w home medications DVT ppx - on coumadin - Time Spent with Patient Total time spent is greater than 50% in coordination of care (as documented) at patient's floor/unit and/or counseling patient: Internal Medicine: Result - Labs CBC & Chem 7: 09/25/18 17:38 09/28/18 03:59 Labs: BMP 09/28/18 03:59 Sodium 139 Potassium 3.9 Chloride 100 Carbon Dioxide 30 H BUN 33 H Creatinine 1.36 H Glucose 195 H Calcium 9.3 Cardiac Enzymes 09/27/18 09/27/18 Range/Units 12:51 18:47 Troponin I < 0.03 < 0.03 (< 0.04) ng/mL - ABG Interpretation ABG results: PT/INR, D-dimer PT 16.2 Seconds (9.4-12.1) H 09/28/18 03:59 Consult Discharge Plan - Plan Referrals: Cami Jorgensen, ANAESTHETIC TECHNICIAN [Primary Care Provider] - 10/05/18 10:00 am (1) Chest pain Qualifiers: Chest pain type: unspecified Qualified Code(s): R07.9 - Chest pain, unspecified (3) Afib Qualifiers: Atrial fibrillation type: chronic Qualified Code(s): I48.2 - Chronic atrial fibrillation (6) Diabetes Qualifiers: Diabetes mellitus type: type 2 Diabetes mellitus chcf insulin use: without intermediate manager use Diabetes mellitus complication status: with unspecified complications Qualified Code(s): E11.8 - Type 2 diabetes mellitus with unspecified complications
--- NOTE | 2018-09-28 17:30 | Electrocardiograph Report ---
[address] [address] Test Date: 2018-09-27 Pat Name: Марина Stuart Department: 113 Room: 3B Gender: M New Car Make Ready Worker: : 1945 Requested By: Geovanni Haddad Order Number: [id number] Reading MD: Lashay Brown Measurements Intervals [place] Rate: 58 P: MN: 0 QRS: 1 QRSD: 106 T: 6 QT: 440 QTc: 438 Interpretive Statements ATRIAL FIBRILLATION WITH SLOW VENTRICULAR RESPONSE INCOMPLETE RIGHT BUNDLE BRANCH BLOCK ABNORMAL RHYTHM ECG Electronically Signed On 09-28-2018 17:29:07 EST by Lashay Brown
[2018-09-28] MEDS ORDERED: *HR* Warfarin 4 MG TABLET PO ONE (18:00)
[2018-09-29] MEDS: *HR* OxyCODONE/APAP 5/325 TABLET PO PRN ×2 (02:38→08:36)
[2018-09-29 05:14] LABS: INR 1.5; Prothrombin Time 17.1 Seconds (9.4-12.1)
[2018-09-29 05:23] LABS: BUN/Creatinine Ratio 27 (6-26); Blood Urea Nitrogen 33 mg/dL (8-23); Calcium 9.6 mg/dL (8.6-10.3); Carbon Dioxide 31 mEq/L (23-29); Chloride 101 mEq/L (98-107); Glucose 202 mg/dL (70-105); Osmolality,Calculated 301 (280-300); Potassium 3.7 mEq/L (3.5-5.1); Sodium 139 mEq/L (136-145); eGFR For Non-African Americans 58 (> 60)
[2018-09-29] MEDS: Cholecalciferol (D-3) 1,000 UNIT TABLET PO SCH (08:35)
[2018-09-29] MEDS: Gabapentin 300 MG CAPSULE PO SCH (08:35)
[2018-09-29] MEDS: Insulin LISPRO 300 UNITS/3 ML VIAL SQ SCH ×2 (08:36→12:29)
[2018-09-29] MEDS: Carbidopa/Levodopa 25/100 TABLET PO SCH ×2 (08:36→12:29)
[2018-09-29] MEDS: Furosemide 40 MG/4 ML VIAL IVP SCH (08:36)
[2018-09-29] MEDS: Aspirin Enteric Coated 81 MG Tablet PO SCH (08:36)
[2018-09-29 11:02] VITALS: BP 122/73
--- NOTE | 2018-09-29 11:46 | Discharge Summary ---
- NOTES TO OUTPATIENT PROVIDER Notes to Outpatient Provider: Patient needed diuresis for few more days before stress testing and follow up with cardiology. Will need close renal monitoring and INR check in 2 days for coumadin dosing. Orders not resulted at time of discharge: Pending orders 09/30/18 04:00 INR/PT [Prothrombin Time INR] [COAG] AM 0400 10/01/18 04:00 INR/PT [Prothrombin Time INR] [COAG] AM 0400 Date of Encounter: 09/29/18 Time of Encounter: 11:40 - Discharge Diagnosis (1) Chest pain Priority: Primary Status: Acute Qualifiers: Chest pain type: unspecified Qualified Code(s): R07.9 - Chest pain, unspecified (2) Bilateral leg edema Priority: Primary Status: Acute (3) Afib Priority: Secondary Status: Acute Qualifiers: Atrial fibrillation type: chronic Qualified Code(s): I48.2 - Chronic atrial fibrillation (4) Tremor due to disorder of central nervous system Priority: Secondary Status: Acute (5) Arthritis Priority: Secondary Status: Chronic (6) Diabetes Priority: Secondary Status: Chronic Qualifiers: Diabetes mellitus type: type 2 Diabetes mellitus shelter insulin use: without vermin exterminator use Diabetes mellitus complication status: with unspecified complications Qualified Code(s): E11.8 - Type 2 diabetes mellitus with unspecified complications (7) Acute on chronic heart failure with preserved ejection fraction Priority: Primary Status: Acute Hospital course: Mr. Stuart is a 73 year old male with past medical history of atrial fibrillation, hypertension, CHF, diabetes, hyperlipidemia came in with chest pain on and off for 3 days. He initially denied any shortness of breath but having pedal Edema but later conceded that for around past 4-5 days he has been short of breath as well. He was initially admitted for stress testing for atypical chest pain after his troponin was negative. But he was found to have CHF exacerbation hence stress test was differed. Patient was diuresed with IV Lasix which initially led to YI which resolved after decreasing his Lasix. His echocardiogram showed EF of 60%, intermediate diastolic dysfunction, severe atrial enlargement, mild pulmonary hypertension. His breathing significantly improved as with clinical exam with diuresis, however he still need volume controll before stress test. Symtomatically he denies any more chest pain or shortness of breath. We will discharge with increase dose of Lasix today. Patient would need outpatient stress testing in 1-2 weeks and follow with cardiology. Patient's INR is subtherapeutic currently and will need close follow-up for renal function while being diuresed as well as INR check for Coumadin dosing. Discharge discussed with: patient, nurse - Time Spent with Patient Total time spent providing and/or coordinating discharge services: Greater than 30 minutes (38) - Discharge Medications Home Medications: Aspirin [Lo-Dose Aspirin EC] 81 mg PO DAILY 11/20/17 [History] Losartan/Hydrochlorothiazide [Losartan-Hctz 100-25 mg Tab] 1 tab PO DAILY 11/20/17 [History] Metformin HCl [Glucophage] 1,000 mg PO BID 11/20/17 [History] Metoprolol [Lopressor] 50 mg PO BID 11/20/17 [History] Oxycodone HCl/Acetaminophen [Percocet 5-325 mg Tablet] 1 tab PO Q6H PRN 11/20/17 [History] Pravastatin Sodium [Pravachol] 40 mg PO DAILY 11/20/17 [History] Warfarin [Coumadin] 8 mg PO [id number] 11/20/17 [History] Carbidopa/Levodopa 25/100 [Sinemet 25/100] 1 tab PO 0800,1200,1600 07/02/18 [History] Cholecalciferol (D-3) [Vitamin D] 2,000 unit PO DAILY 07/02/18 [History] Gabapentin [Neurontin] 300 mg PO 1200 09/26/18 [History] Gabapentin [Neurontin] 600 mg PO BID 09/26/18 [History] Furosemide [Lasix] 60 mg PO BID 7 Days #42 09/29/18 [Rx] Allergies/Adverse Reactions: Allergy/AdvReac Type Severity Reaction Status Date / Time fenofibrate [From Tricor] AdvReac See Verified 12/11/17 13:46 Comments naproxen AdvReac See Verified 12/11/17 13:46 Comments Date of admission: 09/27/18 14:38 Primary care physician: Cami Jorgensen CNP Consults: 09/27/18 08:45 Consult to Nurse Navigator [CONS] Routine Comment: CHF Discharging clinician: Geovanni Haddad - Constitutional Vitals: Temp Pulse Resp BP Pulse Ox 98.4 F 72 16 122/73 93 09/29/18 11:01 09/29/18 11:01 09/29/18 11:01 09/29/18 11:01 09/29/18 11:01 Exam: General: In no acute distress. Conversant. Obese. Respiratory exam: no accessory muscle use, rhonchi, wheezes. CTAB Cardiovascular exam: irregular, +S1, +S2. no murmur, gallop, rubs. GI/Abdominal exam: Obese, Non-tender, Non-distended, normal bowel sounds, soft, no peritoneal signs. Extremities exam: full ROM, 2+ pedal edema b/l, no calf tenderness Neurological exam: CN II-XII intact, AO X3, no focal deficits. tremors noted Skin exam: No skin rash, ulcer, purpura or ecchymosis. - Patient Status Disposition: Home, Self-Care Condition: Good - Discharge Instructions Follow Up With: Cami Jorgensen CNP [Primary Care Provider] - 10/05/18 10:00 am Forms: ED Satisfaction Letter - Diet and Activity Activity: increase activity as tolerated
[2018-09-29] MEDS ORDERED: *HR* Warfarin 4 MG TABLET PO ONE (18:00)
== END 2018-09-29 13:33 | disposition home or self-care (01) | DRG 291 ==
LOC: EMEROOARM 17:18 → 3BNU 17:18 → SUATTDRO 19:07 → 3BNU 20:08
PROVIDERS: ADMIT Hospitalist; ATTEND Internal Medicine

== ENCOUNTER 2019-11-04 15:45 | Inpatient (IN) ==
[2019-11-04] MEDS ORDERED: Azithromycin 500 MG in 0.9 % Sodium Chloride 250 ML IVPB ONE (15:52)
[2019-11-04] MEDS ORDERED: methylPREDNISolone 125 MG/2 ML VIAL IVP ONE (15:52)
[2019-11-04] MEDS ORDERED: Nitroglycerin 0.4 MG TAB.SUBL SL ONE (15:52)
[2019-11-04] MEDS ORDERED: cefTRIAXone 1,000 MG in Water for inj. (sterile) 10 ML IVP ONE (15:52)
[2019-11-04] MEDS ORDERED: Nitroglycerin 0.4 MG TAB.SUBL SL STA (15:54)
[2019-11-04] MEDS ORDERED: Ipratropium/Albuterol Neb 3 ML IH ONE (16:07)
[2019-11-04 16:13] LABS: Basophils # 0.1 K/mcL (0.0-0.2); Basophils % 0.6 %; Eosinophils # 0.2 K/mcL (0.0-0.6); Eosinophils % 2.5 %; Hematocrit 52.4 % (37.5-50.1); Hemoglobin 17.7 g/dL (12.9-16.9); Immature Granulocytes % 0.2 % (0-4); Lymphocytes # 1.7 K/mcL (0.6-4.6); Lymphocytes % 18.5 %; Mean Corpuscular HGB Conc 33.8 g/dL (31.6-35.5); Mean Corpuscular Hemoglobin 27.6 pg (28.0-33.3); Mean Corpuscular Volume 81.7 fL (83.0-100.0); Mean Platelet Volume 9.2 fL (9.4-12.4); Monocytes # 0.9 K/mcL (0.0-1.3); Monocytes % 9.8 %; Neutrophils # 6.4 K/mcL (1.6-8.9); Platelet Count 166 K/mcL (140-400); Red Blood Count 6.41 M/mcL (4.19-5.50); Red Cell Distribution Width 16.9 % (11.5-14.5); Segmented Neutrophils % 68.4 %; White Blood Count 9.3 K/mcL (4.3-11.1)
[2019-11-04 16:21] LABS: VBG HCO3 27 mEq/L (21-27); VBG PCO2 52 mmHg (41-51); VBG PH 7.33 pH Units (7.32-7.42); VBG PO2 51 mmHg (25-50)
[2019-11-04 16:25] LABS: INR 1.8; Prothrombin Time 20.2 Seconds (9.4-12.1)
[2019-11-04 16:28] LABS: Activated Partial Thrombo Time 44.8 Seconds (26.0-36.0)
[2019-11-04 16:37] LABS: Alanine Aminotransferase 7 Units/L (7-52); Albumin/Globulin Ratio 1.5 (1.1-2.2); Alkaline Phosphatase 130 Units/L (34-104); Aspartate Amino Transferase 13 Units/L (13-39); BUN/Creatinine Ratio 17 (6-26); Bilirubin,Direct 0.7 mg/dL (0.0-0.2); Bilirubin,Indirect 1.1 mg/dL (0.0-1.0); Bilirubin,Total 1.8 mg/dL (0.3-1.0); Blood Urea Nitrogen 22 mg/dL (8-23); Carbon Dioxide 27 mEq/L (23-29); Chloride 96 mEq/L (98-107); Globulin 3.4 g/dL (2.4-3.5); Glucose 235 mg/dL (70-105); Osmolality,Calculated 289 (280-300); Sodium 134 mEq/L (136-145); Total Protein 8.4 g/dL (6.4-8.9); Troponin I < 0.03 ng/mL (< 0.04); eGFR For African Americans > 60 (> 60); eGFR For Non-African Americans 52 (> 60)
[2019-11-04] MEDS ORDERED: Acetaminophen 650 MG RECTAL SUPP RC ONE (16:45)
[2019-11-04] MEDS ORDERED: Piperacillin/Tazobactam 3.375 GM in 0.9 % Sodium Chloride Mini Bag 100 ML IVPB ONE (17:00)
[2019-11-04] MEDS ORDERED: LEVOFLOXACIN 750 MG/150 ML IVPB ONE (17:00)
[2019-11-04 17:16] LABS: Magnesium 1.9 mg/dL (1.6-2.6)
[2019-11-04 18:53] LABS: Bilirubin,Urine Small (Negative); Blood,Urine Moderate (Negative); Clarity,Urine Cloudy (Clear); Color,Urine Yellow (Yellow); Glucose,Urine (UA) 100 mg/dL (Normal); Ketones,Urine Trace mg/dL (Negative); Leukocyte Esterase,Urine Negative (Negative); Nitrite,Urine Negative (Negative); Protein,Urine >=1000 mg/dL (Neg-Trace); Specific Gravity,Urine > 1.030 (1.010-1.025); Urobilinogen,Urine Normal (Normal)
[2019-11-04 18:57] LABS: Bacteria,Urine None Seen per hpf (None-Few); Hyaline Casts,Urine Moderate per lpf (None-Few); RBC,Urine TNTC per hpf (0-3); Squamous Epithelial Cell,Urine Many per lpf (None-Few); WBC,Urine 15-30 per hpf (0-3)
[2019-11-04 19:14] LABS: Sperm,Urine Present (None Seen)
[2019-11-04] MEDS ORDERED: Naloxone 0.4 MG/ML INJ IVP PRN (19:18)
[2019-11-04] MEDS ORDERED: D5% in Water 1,000 ML IVC PRN (19:26)
[2019-11-04] MEDS ORDERED: *HR* Dextrose 50 % in Water (Syg) 50 ML SYRINGE IVP PRN (19:26)
[2019-11-04] MEDS ORDERED: Dextrose Gel 15 GM/37.5 ML TUBE PO PRN ×2 (19:26)
[2019-11-04] MEDS ORDERED: *HR* FentaNYL (PF) 100 MCG/2 ML VIAL IVP ONE (19:35)
[2019-11-04] MEDS: 0.9 % Sodium Chloride 1,000 ML IVC SCH (19:46)
[2019-11-04] MEDS ORDERED: Vancomycin 1,750 MG in 0.9 % Sodium Chloride 250 ML IVPB SCH (20:00)
[2019-11-04] MEDS ORDERED: Azithromycin 500 MG in 0.9 % Sodium Chloride 250 ML IVPB SCH (20:00)
[2019-11-04] MEDS ORDERED: Ipratropium/Albuterol Neb 3 ML ONE (21:36)
[2019-11-04] MEDS: Ipratropium/Albuterol Neb 3 ML IH SCH ×2 (21:47→23:37)
[2019-11-04] MEDS: Piperacillin/Tazobactam 3.375 GM in 0.9 % Sodium Chloride Mini Bag 100 ML IVPB SCH (23:40)
[2019-11-04] MEDS: Insulin LISPRO 300 UNITS/3 ML VIAL SQ SCH (23:42)
[2019-11-05] MEDS: 0.9 % Sodium Chloride 1,000 ML IVC SCH ×2 (01:07→16:17)
[2019-11-05] MEDS ORDERED: Furosemide 40 MG/4 ML VIAL IVP ONE (03:00)
[2019-11-05] MEDS: Ipratropium/Albuterol Neb 3 ML IH SCH ×5 (04:02→20:32)
[2019-11-05] MEDS: Insulin LISPRO 300 UNITS/3 ML VIAL SQ SCH ×6 (05:42→20:43)
[2019-11-05 06:41] LABS: Basophils % 0.2 %; Hematocrit 42.9 % (37.5-50.1); Immature Granulocytes % 0.2 % (0-4); Lymphocytes # 0.5 K/mcL (0.6-4.6); Lymphocytes % 7.2 %; Mean Corpuscular HGB Conc 33.3 g/dL (31.6-35.5); Mean Corpuscular Hemoglobin 27.3 pg (28.0-33.3); Mean Corpuscular Volume 81.9 fL (83.0-100.0); Mean Platelet Volume 9.7 fL (9.4-12.4); Monocytes # 0.4 K/mcL (0.0-1.3); Monocytes % 6.9 %; Neutrophils # 5.4 K/mcL (1.6-8.9); Platelet Count 156 K/mcL (140-400); Red Blood Count 5.24 M/mcL (4.19-5.50); Red Cell Distribution Width 15.3 % (11.5-14.5); Segmented Neutrophils % 85.5 %; White Blood Count 6.3 K/mcL (4.3-11.1)
[2019-11-05 06:43] LABS: Hemoglobin 14.3 g/dL (12.9-16.9)
[2019-11-05 06:48] LABS: INR 1.7; Prothrombin Time 19.7 Seconds (9.4-12.1)
[2019-11-05 07:00] LABS: Albumin 3.9 g/dL (3.5-5.7); Albumin/Globulin Ratio 1.3 (1.1-2.2); Bilirubin,Total 1.1 mg/dL (0.3-1.0); Calcium 9.3 mg/dL (8.6-10.3); Globulin 2.9 g/dL (2.4-3.5); Potassium 3.9 mEq/L (3.5-5.1); Total Protein 6.8 g/dL (6.4-8.9)
[2019-11-05] MEDS: Piperacillin/Tazobactam 3.375 GM in 0.9 % Sodium Chloride Mini Bag 100 ML IVPB SCH ×3 (08:40→23:27)
[2019-11-05] MEDS ORDERED: Azithromycin 500 MG in 0.9 % Sodium Chloride 250 ML IVPB SCH (09:00)
[2019-11-05] MEDS ORDERED: Aminoglycoside Consult 1 EACH MC ONE (09:37)
[2019-11-05] MEDS ORDERED: Naloxone 0.4 MG/ML INJ IVP PRN (14:52)
[2019-11-05] MEDS ORDERED: Dextrose Gel 15 GM/37.5 ML TUBE PO PRN ×2 (14:52)
[2019-11-05] MEDS ORDERED: *HR* Dextrose 50 % in Water (Syg) 50 ML SYRINGE IVP PRN (14:52)
[2019-11-05] MEDS ORDERED: D5% in Water 1,000 ML IVC PRN (14:52)
[2019-11-05] MEDS: Carbidopa/Levodopa 25/100 TABLET PO SCH (16:43)
[2019-11-05] MEDS: *HR* OxyCODONE/APAP 5/325 TABLET PO PRN ×2 (16:54→23:28)
[2019-11-05] MEDS ORDERED: *HR* Warfarin 4 MG TABLET PO ONE ×2 (18:00)
[2019-11-05] MEDS ORDERED: Warfarin perPT PO PRN ×2 (18:00)
[2019-11-05] MEDS: Gabapentin 300 MG CAPSULE PO SCH (21:48)
[2019-11-06] MEDS: Ipratropium/Albuterol Neb 3 ML IH SCH ×7 (00:21→23:37)
[2019-11-06 01:18] LABS: Basophils % 0.2 %; Eosinophils % 0.4 %; Hematocrit 38.9 % (37.5-50.1); Hemoglobin 13.3 g/dL (12.9-16.9); Immature Granulocytes % 0.2 % (0-4); Lymphocytes # 0.9 K/mcL (0.6-4.6); Lymphocytes % 10.9 %; Mean Corpuscular HGB Conc 34.2 g/dL (31.6-35.5); Mean Corpuscular Hemoglobin 27.9 pg (28.0-33.3); Mean Corpuscular Volume 81.6 fL (83.0-100.0); Mean Platelet Volume 9.2 fL (9.4-12.4); Monocytes % 12.4 %; Neutrophils # 6.2 K/mcL (1.6-8.9); Platelet Count 166 K/mcL (140-400); Red Blood Count 4.77 M/mcL (4.19-5.50); Red Cell Distribution Width 15.4 % (11.5-14.5); Segmented Neutrophils % 75.9 %; White Blood Count 8.2 K/mcL (4.3-11.1)
[2019-11-06 01:37] LABS: Albumin 3.6 g/dL (3.5-5.7); Albumin/Globulin Ratio 1.5 (1.1-2.2); Bilirubin,Total 0.8 mg/dL (0.3-1.0); Calcium 8.9 mg/dL (8.6-10.3); Globulin 2.4 g/dL (2.4-3.5); Phosphorous 4.4 mg/dL (2.7-4.5); Potassium 3.5 mEq/L (3.5-5.1)
[2019-11-06] MEDS: *HR* OxyCODONE/APAP 5/325 TABLET PO PRN ×2 (06:23→22:26)
[2019-11-06] MEDS: Piperacillin/Tazobactam 3.375 GM in 0.9 % Sodium Chloride Mini Bag 100 ML IVPB SCH ×3 (08:58→23:51)
[2019-11-06] MEDS: Gabapentin 300 MG CAPSULE PO SCH ×3 (09:03→20:16)
[2019-11-06] MEDS: Cholecalciferol (D-3) 1,000 UNIT (25MCG) TABLET PO SCH (09:03)
[2019-11-06] MEDS: Aspirin Enteric Coated 81 MG Tablet PO SCH (09:03)
[2019-11-06] MEDS: Insulin LISPRO 300 UNITS/3 ML VIAL SQ SCH ×4 (09:03→20:18)
[2019-11-06] MEDS: Isosorbide MONOnitrate (24 HR) 60 MG TAB.ER.24H PO SCH (09:04)
[2019-11-06] MEDS: 0.9 % Sodium Chloride 1,000 ML IVC SCH ×2 (09:04→16:44)
[2019-11-06] MEDS: Azithromycin 500 MG in 0.9 % Sodium Chloride 250 ML IVPB SCH (09:08)
[2019-11-06] MEDS: Carbidopa/Levodopa 25/100 TABLET PO SCH ×3 (09:08→16:44)
[2019-11-06 13:54] LABS: Bilirubin,Urine Small (Negative); Blood,Urine Large (Negative); Clarity,Urine Turbid (Clear); Color,Urine Dark Yellow (Yellow); Glucose,Urine (UA) 100 mg/dL (Normal); Ketones,Urine Trace mg/dL (Negative); Leukocyte Esterase,Urine Small (Negative); Nitrite,Urine Negative (Negative); PH,Urine 5.5 pH Units (5.0-8.0); Protein,Urine >=300 mg/dL (Neg-Trace); Specific Gravity,Urine 1.022 (1.010-1.025); Urobilinogen,Urine Normal (Normal)
[2019-11-06 14:18] LABS: Granular Casts,Urine Few per lpf (None Seen)
[2019-11-06 14:19] LABS: Amorphous Sediment,Urine Moderate per hpf (Few); RBC,Urine TNTC per hpf (0-3); Squamous Epithelial Cell,Urine Few per lpf (None-Few)
[2019-11-06 14:20] LABS: Mucus,Urine Few per lpf (Few)
[2019-11-06 14:21] LABS: Bacteria,Urine Moderate per hpf (None-Few)
[2019-11-06 15:14] LABS: Protein/Creatinine Ratio,Urine 2.4 mg/mg (0.00-0.20)
[2019-11-06] MEDS ORDERED: *HR* Warfarin 4 MG TABLET PO ONE (18:00)
[2019-11-07] MEDS: 0.9 % Sodium Chloride 1,000 ML IVC SCH ×4 (00:47→21:09)
[2019-11-07] MEDS: Ipratropium/Albuterol Neb 3 ML IH SCH ×5 (04:07→20:37)
[2019-11-07 05:18] LABS: INR 2.2; Prothrombin Time 25.1 Seconds (9.4-12.1)
[2019-11-07 05:43] LABS: Troponin I 0.1 ng/mL (< 0.04)
[2019-11-07 05:50] LABS: Thyroid Stimulating Hormone 1.433 mcIU/mL (0.340-5.600)
[2019-11-07 09:04] LABS: Basophils % 0.6 %; Eosinophils # 0.3 K/mcL (0.0-0.6); Eosinophils % 6.9 %; Hematocrit 40.6 % (37.5-50.1); Hemoglobin 13.3 g/dL (12.9-16.9); Immature Granulocytes % 0.4 % (0-4); Lymphocytes # 0.7 K/mcL (0.6-4.6); Lymphocytes % 14.9 %; Mean Corpuscular HGB Conc 32.8 g/dL (31.6-35.5); Mean Corpuscular Hemoglobin 27.5 pg (28.0-33.3); Mean Corpuscular Volume 83.9 fL (83.0-100.0); Mean Platelet Volume 9.1 fL (9.4-12.4); Monocytes # 0.8 K/mcL (0.0-1.3); Monocytes % 16.7 %; Platelet Count 147 K/mcL (140-400); Red Blood Count 4.84 M/mcL (4.19-5.50); Red Cell Distribution Width 15.5 % (11.5-14.5); Segmented Neutrophils % 60.5 %; White Blood Count 4.9 K/mcL (4.3-11.1)
[2019-11-07 09:11] LABS: Calcium 8.6 mg/dL (8.6-10.3)
[2019-11-07] MEDS: Aspirin Enteric Coated 81 MG Tablet PO SCH (10:02)
[2019-11-07] MEDS: Carbidopa/Levodopa 25/100 TABLET PO SCH ×3 (10:02→18:05)
[2019-11-07] MEDS: Isosorbide MONOnitrate (24 HR) 60 MG TAB.ER.24H PO SCH (10:02)
[2019-11-07] MEDS: Cholecalciferol (D-3) 1,000 UNIT (25MCG) TABLET PO SCH (10:03)
[2019-11-07] MEDS: Gabapentin 300 MG CAPSULE PO SCH ×3 (10:03→20:58)
[2019-11-07] MEDS: Insulin LISPRO 300 UNITS/3 ML VIAL SQ SCH ×4 (10:04→20:57)
[2019-11-07] MEDS: Azithromycin 500 MG in 0.9 % Sodium Chloride 250 ML IVPB SCH (10:10)
[2019-11-07] MEDS ORDERED: 0.9 % Sodium Chloride 1,000 ML IVC ONE (10:19)
[2019-11-07] MEDS: Piperacillin/Tazobactam 3.375 GM in 0.9 % Sodium Chloride Mini Bag 100 ML IVPB SCH ×2 (11:48→23:29)
[2019-11-07] MEDS ORDERED: *HR* Warfarin 3 MG TABLET PO ONE (18:00)
[2019-11-07] MEDS: Menthol 9.1 MG LOZENGE PO PRN (23:33)
[2019-11-07] MEDS: *HR* OxyCODONE/APAP 5/325 TABLET PO PRN (23:33)
[2019-11-08] MEDS: Ipratropium/Albuterol Neb 3 ML IH SCH ×7 (00:17→23:58)
[2019-11-08 04:35] LABS: Basophils % 0.4 %; Eosinophils # 0.4 K/mcL (0.0-0.6); Eosinophils % 8.6 %; Hematocrit 38.7 % (37.5-50.1); Hemoglobin 12.8 g/dL (12.9-16.9); Immature Granulocytes % 0.4 % (0-4); Lymphocytes % 21.4 %; Mean Corpuscular HGB Conc 33.1 g/dL (31.6-35.5); Mean Corpuscular Hemoglobin 27.5 pg (28.0-33.3); Mean Corpuscular Volume 83.2 fL (83.0-100.0); Mean Platelet Volume 8.7 fL (9.4-12.4); Monocytes # 0.7 K/mcL (0.0-1.3); Monocytes % 14.6 %; Neutrophils # 2.5 K/mcL (1.6-8.9); Platelet Count 132 K/mcL (140-400); Red Blood Count 4.65 M/mcL (4.19-5.50); Red Cell Distribution Width 15.4 % (11.5-14.5); Segmented Neutrophils % 54.6 %; White Blood Count 4.5 K/mcL (4.3-11.1)
[2019-11-08 04:50] LABS: INR 2.6; Prothrombin Time 29.9 Seconds (9.4-12.1)
[2019-11-08 04:54] LABS: Magnesium 2.1 mg/dL (1.6-2.6); Phosphorous 5.5 mg/dL (2.7-4.5)
[2019-11-08] MEDS: 0.9 % Sodium Chloride 1,000 ML IVC SCH (05:30)
[2019-11-08] MEDS ORDERED: 0.9 % Sodium Chloride 1,000 ML IVC ONE (07:32)
[2019-11-08] MEDS: Insulin LISPRO 300 UNITS/3 ML VIAL SQ SCH ×4 (07:36→21:14)
[2019-11-08] MEDS: Azithromycin 500 MG in 0.9 % Sodium Chloride 250 ML IVPB SCH (08:09)
[2019-11-08] MEDS: Cholecalciferol (D-3) 1,000 UNIT (25MCG) TABLET PO SCH (08:09)
[2019-11-08] MEDS: Isosorbide MONOnitrate (24 HR) 60 MG TAB.ER.24H PO SCH (08:09)
[2019-11-08] MEDS: Carbidopa/Levodopa 25/100 TABLET PO SCH ×3 (08:09→17:14)
[2019-11-08] MEDS: Aspirin Enteric Coated 81 MG Tablet PO SCH (08:09)
[2019-11-08 10:53] LABS: Complement C3 97 mg/dL (87-200)
[2019-11-08] MEDS: Piperacillin/Tazobactam 3.375 GM in 0.9 % Sodium Chloride Mini Bag 100 ML IVPB SCH (11:40)
[2019-11-08 11:49] LABS: Bilirubin,Urine Negative (Negative); Blood,Urine Large (Negative); Clarity,Urine Cloudy (Clear); Glucose,Urine (UA) Normal (Normal); Ketones,Urine Negative (Negative); Leukocyte Esterase,Urine Small (Negative); Nitrite,Urine Negative (Negative); PH,Urine 5.5 pH Units (5.0-8.0); Protein,Urine 100 mg/dL (Neg-Trace); Specific Gravity,Urine 1.014 (1.010-1.025); Urobilinogen,Urine Normal (Normal)
[2019-11-08 11:51] LABS: RBC,Urine TNTC per hpf (0-3); Squamous Epithelial Cell,Urine Many per lpf (None-Few); WBC,Urine 15-30 per hpf (0-3)
[2019-11-08 11:52] LABS: Color,Urine Pink (Yellow)
[2019-11-08 12:09] LABS: Bacteria,Urine Few per hpf (None-Few)
[2019-11-08] MEDS: Menthol 9.1 MG LOZENGE PO PRN (14:44)
[2019-11-08] MEDS ORDERED: *HR* Warfarin 4 MG TABLET PO ONE (18:00)
[2019-11-08] MEDS ORDERED: *HR* OxyCODONE/APAP 5/325 TABLET PO ONE (18:34)
[2019-11-08] MEDS: *HR* OxyCODONE/APAP 5/325 TABLET PO PRN (18:37)
[2019-11-08] MEDS: Gabapentin 300 MG CAPSULE PO SCH (21:14)
[2019-11-09] MEDS: Piperacillin/Tazobactam 3.375 GM in 0.9 % Sodium Chloride Mini Bag 100 ML IVPB SCH ×2 (00:33→12:03)
[2019-11-09] MEDS: Ipratropium/Albuterol Neb 3 ML IH SCH ×6 (03:51→23:38)
[2019-11-09 04:35] LABS: INR 2.5
[2019-11-09 04:37] LABS: Basophils % 0.5 %; Eosinophils # 0.3 K/mcL (0.0-0.6); Eosinophils % 5.5 %; Hematocrit 38.1 % (37.5-50.1); Immature Granulocytes % 0.4 % (0-4); Lymphocytes # 0.9 K/mcL (0.6-4.6); Lymphocytes % 15.1 %; Mean Corpuscular HGB Conc 34.1 g/dL (31.6-35.5); Mean Corpuscular Hemoglobin 28.1 pg (28.0-33.3); Mean Corpuscular Volume 82.5 fL (83.0-100.0); Mean Platelet Volume 8.8 fL (9.4-12.4); Monocytes # 0.7 K/mcL (0.0-1.3); Monocytes % 12.9 %; Neutrophils # 3.7 K/mcL (1.6-8.9); Platelet Count 120 K/mcL (140-400); Red Blood Count 4.62 M/mcL (4.19-5.50); Red Cell Distribution Width 15.2 % (11.5-14.5); Segmented Neutrophils % 65.6 %; White Blood Count 5.6 K/mcL (4.3-11.1)
[2019-11-09 05:00] LABS: Calcium 8.4 mg/dL (8.6-10.3); Magnesium 2.2 mg/dL (1.6-2.6); Phosphorous 6.4 mg/dL (2.7-4.5); Potassium 4.2 mEq/L (3.5-5.1)
[2019-11-09] MEDS: Insulin LISPRO 300 UNITS/3 ML VIAL SQ SCH ×4 (08:45→21:28)
[2019-11-09] MEDS: Carbidopa/Levodopa 25/100 TABLET PO SCH ×3 (08:46→15:46)
[2019-11-09] MEDS: Isosorbide MONOnitrate (24 HR) 60 MG TAB.ER.24H PO SCH (08:46)
[2019-11-09] MEDS: Cholecalciferol (D-3) 1,000 UNIT (25MCG) TABLET PO SCH (08:46)
[2019-11-09] MEDS: Aspirin Enteric Coated 81 MG Tablet PO SCH (08:46)
[2019-11-09] MEDS ORDERED: Benzonatate 100 MG CAPSULE PO PRN ×2 (09:49→10:36)
[2019-11-09] MEDS: Benzonatate 100 MG CAPSULE PO SCH ×3 (12:03→21:31)
[2019-11-09] MEDS: *HR* OxyCODONE/APAP 5/325 TABLET PO PRN (19:30)
[2019-11-09] MEDS: Gabapentin 300 MG CAPSULE PO SCH (21:31)
[2019-11-10] MEDS: Piperacillin/Tazobactam 3.375 GM in 0.9 % Sodium Chloride Mini Bag 100 ML IVPB SCH ×2 (00:07→12:32)
[2019-11-10] MEDS: Ipratropium/Albuterol Neb 3 ML IH SCH ×6 (03:23→23:46)
[2019-11-10 04:31] LABS: INR 2.3; Prothrombin Time 25.6 Seconds (9.4-12.1)
[2019-11-10 04:52] LABS: Basophils % 0.6 %; Eosinophils # 0.3 K/mcL (0.0-0.6); Eosinophils % 4.2 %; Hematocrit 40.8 % (37.5-50.1); Hemoglobin 13.8 g/dL (12.9-16.9); Immature Granulocytes % 0.6 % (0-4); Lymphocytes # 0.9 K/mcL (0.6-4.6); Mean Corpuscular HGB Conc 33.8 g/dL (31.6-35.5); Mean Corpuscular Hemoglobin 28.1 pg (28.0-33.3); Mean Corpuscular Volume 83.1 fL (83.0-100.0); Mean Platelet Volume 9.4 fL (9.4-12.4); Monocytes # 0.9 K/mcL (0.0-1.3); Monocytes % 13.2 %; Platelet Count 139 K/mcL (140-400); Red Blood Count 4.91 M/mcL (4.19-5.50); Segmented Neutrophils % 69.4 %; White Blood Count 7.1 K/mcL (4.3-11.1)
[2019-11-10 05:08] LABS: Calcium 8.4 mg/dL (8.6-10.3); Magnesium 2.3 mg/dL (1.6-2.6); Phosphorous 6.4 mg/dL (2.7-4.5); Potassium 4.4 mEq/L (3.5-5.1)
[2019-11-10] MEDS ORDERED: 0.9 % Sodium Chloride 250 ML IVC SCH (08:00)
[2019-11-10] MEDS: Insulin LISPRO 300 UNITS/3 ML VIAL SQ SCH ×4 (08:00→21:24)
[2019-11-10] MEDS: Isosorbide MONOnitrate (24 HR) 60 MG TAB.ER.24H PO SCH (09:44)
[2019-11-10] MEDS: Aspirin Enteric Coated 81 MG Tablet PO SCH (09:44)
[2019-11-10] MEDS: Cholecalciferol (D-3) 1,000 UNIT (25MCG) TABLET PO SCH (09:44)
[2019-11-10] MEDS: Benzonatate 100 MG CAPSULE PO SCH ×3 (09:44→21:23)
[2019-11-10] MEDS: Carbidopa/Levodopa 25/100 TABLET PO SCH ×3 (09:51→17:56)
[2019-11-10] MEDS ORDERED: *HR* Phytonadione 5 MG TABLET PO ONE (10:36)
[2019-11-10] MEDS: Menthol 9.1 MG LOZENGE PO PRN (12:29)
[2019-11-10] MEDS: *HR* OxyCODONE/APAP 5/325 TABLET PO PRN ×2 (12:31→16:53)
[2019-11-10 14:14] LABS: ANA IgG by ELISA NONE DETECTED (None Detected); Serine Protease-3 Antibody 4 AU/mL (0-19)
[2019-11-10 16:51] LABS: Bilirubin,Urine Negative (Negative); Blood,Urine Large (Negative); Clarity,Urine Cloudy (Clear); Color,Urine Yellow (Yellow); Glucose,Urine (UA) Normal (Normal); Ketones,Urine Negative (Negative); Leukocyte Esterase,Urine Negative (Negative); Nitrite,Urine Negative (Negative); PH,Urine 5.5 pH Units (5.0-8.0); Protein,Urine 100 mg/dL (Neg-Trace); Specific Gravity,Urine 1.016 (1.010-1.025); Urobilinogen,Urine Normal (Normal)
[2019-11-10 16:54] LABS: Bacteria,Urine None Seen per hpf (None-Few); Hyaline Casts,Urine None Seen per lpf (None-Few); Squamous Epithelial Cell,Urine Moderate per lpf (None-Few); WBC,Urine 0-3 per hpf (0-3)
[2019-11-10 18:07] LABS: RBC,Urine 15-30 per hpf (0-3)
[2019-11-10] MEDS ORDERED: Furosemide 40 MG/4 ML VIAL IVP ONE (18:26)
[2019-11-10] MEDS ORDERED: Albumin 25% 25gram/100mL 25 GM/100 ML IV.SOLN IVPB ONE (18:26)
[2019-11-10 19:08] LABS: Kappa Qnt Free Light Chains 92.61 mg/L (3.30-19.40); Lambda Qnt Free Light Chains 33.82 mg/L (5.71-26.30)
[2019-11-10 23:15] LABS: INR 1.8; Prothrombin Time 20.6 Seconds (9.4-12.1)
[2019-11-11] MEDS ORDERED: 0.9 % Sodium Chloride 250 ML ONE (01:37)
[2019-11-11] MEDS: Ipratropium/Albuterol Neb 3 ML IH SCH ×5 (03:34→20:13)
[2019-11-11 06:39] LABS: Basophils % 0.3 %; Eosinophils # 0.2 K/mcL (0.0-0.6); Eosinophils % 2.7 %; Hematocrit 37.4 % (37.5-50.1); Hemoglobin 12.5 g/dL (12.9-16.9); Immature Granulocytes % 0.8 % (0-4); Lymphocytes # 0.8 K/mcL (0.6-4.6); Lymphocytes % 12.7 %; Mean Corpuscular HGB Conc 33.4 g/dL (31.6-35.5); Mean Corpuscular Hemoglobin 27.4 pg (28.0-33.3); Mean Corpuscular Volume 81.8 fL (83.0-100.0); Mean Platelet Volume 9.1 fL (9.4-12.4); Monocytes # 0.9 K/mcL (0.0-1.3); Monocytes % 14.4 %; Neutrophils # 4.5 K/mcL (1.6-8.9); Platelet Count 158 K/mcL (140-400); Red Blood Count 4.57 M/mcL (4.19-5.50); Red Cell Distribution Width 14.6 % (11.5-14.5); Segmented Neutrophils % 69.1 %; White Blood Count 6.6 K/mcL (4.3-11.1)
[2019-11-11 06:45] LABS: INR 1.5
[2019-11-11 07:07] LABS: Calcium 8.9 mg/dL (8.6-10.3); Magnesium 2.2 mg/dL (1.6-2.6); Phosphorous 6.7 mg/dL (2.7-4.5); Potassium 4.2 mEq/L (3.5-5.1)
[2019-11-11] MEDS: Isosorbide MONOnitrate (24 HR) 60 MG TAB.ER.24H PO SCH (08:18)
[2019-11-11] MEDS: Cholecalciferol (D-3) 1,000 UNIT (25MCG) TABLET PO SCH (08:18)
[2019-11-11] MEDS: Aspirin Enteric Coated 81 MG Tablet PO SCH (08:18)
[2019-11-11] MEDS: Benzonatate 100 MG CAPSULE PO SCH ×3 (08:19→21:10)
[2019-11-11] MEDS: Insulin LISPRO 300 UNITS/3 ML VIAL SQ SCH ×4 (08:19→21:10)
[2019-11-11] MEDS: Carbidopa/Levodopa 25/100 TABLET PO SCH ×3 (08:20→16:39)
[2019-11-11] MEDS ORDERED: 0.9 % Sodium Chloride 250 ML IVC PRN (08:54)
[2019-11-11 09:00] LABS: Alpha 2 Globulin (PEP) 0.68 g/dL (0.48-1.05); Beta Globulin (PEP) 0.66 g/dL (0.48-1.10)
[2019-11-11] MEDS ORDERED: 0.9 % Sodium Chloride 1,000 ML PRIME SCH (09:00)
[2019-11-11 12:22] LABS: Hepatitis B Surface Antibody 3.41 mIU/mL
[2019-11-11 12:24] LABS: Urine Collection Volume RANDOM mL
[2019-11-11 12:34] LABS: Hepatitis B Surface Antigen Nonreactive (Nonreactive)
[2019-11-11] MEDS ORDERED: 0.9 % Sodium Chloride 500 ML ONE (13:09)
[2019-11-11] MEDS ORDERED: *HR* Heparin 5,000 UNIT/ML VIAL ONE (14:02)
[2019-11-11 14:22] LABS: IFE Reflexed NOT DONE
[2019-11-11] MEDS ORDERED: *HR* Promethazine 25 MG/ML VIAL IVP ONE (21:13)
[2019-11-12] MEDS: Ipratropium/Albuterol Neb 3 ML IH SCH ×6 (00:04→20:16)
[2019-11-12 04:04] LABS: Basophils % 0.3 %; Eosinophils # 0.1 K/mcL (0.0-0.6); Hematocrit 35.2 % (37.5-50.1); Hemoglobin 12.1 g/dL (12.9-16.9); Immature Granulocytes % 0.4 % (0-4); Lymphocytes # 0.7 K/mcL (0.6-4.6); Lymphocytes % 9.7 %; Mean Corpuscular HGB Conc 34.4 g/dL (31.6-35.5); Mean Corpuscular Volume 81.5 fL (83.0-100.0); Mean Platelet Volume 9.3 fL (9.4-12.4); Monocytes # 0.9 K/mcL (0.0-1.3); Monocytes % 11.9 %; Neutrophils # 5.5 K/mcL (1.6-8.9); Platelet Count 198 K/mcL (140-400); Red Blood Count 4.32 M/mcL (4.19-5.50); Red Cell Distribution Width 14.6 % (11.5-14.5); Segmented Neutrophils % 76.7 %; White Blood Count 7.1 K/mcL (4.3-11.1)
[2019-11-12 04:12] LABS: INR 1.3; Prothrombin Time 15.3 Seconds (9.4-12.1)
[2019-11-12 04:23] LABS: Calcium 8.9 mg/dL (8.6-10.3); Magnesium 2.2 mg/dL (1.6-2.6)
[2019-11-12] MEDS ORDERED: 0.9 % Sodium Chloride 250 ML IVC PRN (06:15)
[2019-11-12] MEDS: Benzonatate 100 MG CAPSULE PO SCH ×3 (09:49→21:01)
[2019-11-12] MEDS: Cholecalciferol (D-3) 1,000 UNIT (25MCG) TABLET PO SCH (09:49)
[2019-11-12] MEDS: Aspirin Enteric Coated 81 MG Tablet PO SCH (09:49)
[2019-11-12] MEDS: Insulin LISPRO 300 UNITS/3 ML VIAL SQ SCH ×4 (09:50→20:46)
[2019-11-12] MEDS: Carbidopa/Levodopa 25/100 TABLET PO SCH ×3 (09:51→16:21)
[2019-11-12] MEDS: Isosorbide MONOnitrate (24 HR) 60 MG TAB.ER.24H PO SCH (10:29)
[2019-11-12] MEDS ORDERED: *HR* Heparin 5,000 UNIT/ML VIAL IVP ONE (11:11)
[2019-11-12] MEDS ORDERED: *HR* Heparin 10,000 UNIT/10 ML VIAL IV PRN (12:11)
[2019-11-12] MEDS: Heparin 25,000 UNIT/250 ML D5W 25,000 UNIT/250 ML IV.SOLN IVC SCH (12:25)
[2019-11-12 13:50] LABS: Hematocrit 37.7 % (37.5-50.1); Hemoglobin 12.8 g/dL (12.9-16.9); Mean Corpuscular Hemoglobin 27.9 pg (28.0-33.3); Mean Corpuscular Volume 82.1 fL (83.0-100.0); Mean Platelet Volume 9.1 fL (9.4-12.4); Platelet Count 220 K/mcL (140-400); Red Blood Count 4.59 M/mcL (4.19-5.50); Red Cell Distribution Width 14.6 % (11.5-14.5); White Blood Count 6.7 K/mcL (4.3-11.1)
[2019-11-12 13:59] LABS: INR 1.4; Prothrombin Time 16.2 Seconds (9.4-12.1)
[2019-11-12 14:07] LABS: Heparin anti-factor XA UFH 1.16 IU/mL (0.30-0.70)
[2019-11-12] MEDS: *HR* Heparin 5,000 UNIT/ML VIAL IVP PRN (21:00)
[2019-11-13] MEDS: Heparin 25,000 UNIT/250 ML D5W 25,000 UNIT/250 ML IV.SOLN IVC SCH ×2 (03:48→15:50)
[2019-11-13] MEDS: Ipratropium/Albuterol Neb 3 ML IH SCH ×6 (04:02→20:10)
[2019-11-13 04:05] LABS: Basophils % 0.5 %; Eosinophils # 0.2 K/mcL (0.0-0.6); Eosinophils % 3.4 %; Hematocrit 35.2 % (37.5-50.1); Hemoglobin 11.7 g/dL (12.9-16.9); Immature Granulocytes % 0.6 % (0-4); Lymphocytes # 0.7 K/mcL (0.6-4.6); Lymphocytes % 10.6 %; Mean Corpuscular HGB Conc 33.2 g/dL (31.6-35.5); Mean Corpuscular Volume 81.3 fL (83.0-100.0); Mean Platelet Volume 9.1 fL (9.4-12.4); Monocytes # 0.7 K/mcL (0.0-1.3); Monocytes % 11.4 %; Neutrophils # 4.6 K/mcL (1.6-8.9); Platelet Count 250 K/mcL (140-400); Red Blood Count 4.33 M/mcL (4.19-5.50); Red Cell Distribution Width 14.5 % (11.5-14.5); Segmented Neutrophils % 73.5 %; White Blood Count 6.2 K/mcL (4.3-11.1)
[2019-11-13 04:09] LABS: INR 1.3; Prothrombin Time 14.5 Seconds (9.4-12.1)
[2019-11-13] MEDS: *HR* Heparin 5,000 UNIT/ML VIAL IVP PRN ×2 (04:23→12:31)
[2019-11-13 04:25] LABS: Calcium 8.9 mg/dL (8.6-10.3); Magnesium 2.1 mg/dL (1.6-2.6); Phosphorous 4.3 mg/dL (2.7-4.5); Potassium 3.5 mEq/L (3.5-5.1)
[2019-11-13] MEDS: Benzonatate 100 MG CAPSULE PO SCH ×3 (08:54→20:26)
[2019-11-13] MEDS: Carbidopa/Levodopa 25/100 TABLET PO SCH ×3 (08:54→15:49)
[2019-11-13] MEDS: Isosorbide MONOnitrate (24 HR) 60 MG TAB.ER.24H PO SCH (08:55)
[2019-11-13] MEDS: Insulin LISPRO 300 UNITS/3 ML VIAL SQ SCH ×4 (08:55→20:58)
[2019-11-13] MEDS: Cholecalciferol (D-3) 1,000 UNIT (25MCG) TABLET PO SCH (08:55)
[2019-11-13] MEDS: Aspirin Enteric Coated 81 MG Tablet PO SCH (08:55)
[2019-11-13] MEDS: Furosemide 40 MG TABLET PO SCH ×2 (10:05→15:49)
[2019-11-13] MEDS: *HR* OxyCODONE Immed Rel 5 MG TABLET PO PRN (22:28)
[2019-11-14] MEDS: Heparin 25,000 UNIT/250 ML D5W 25,000 UNIT/250 ML IV.SOLN IVC SCH ×4 (00:07→19:33)
[2019-11-14] MEDS: Ipratropium/Albuterol Neb 3 ML IH SCH ×7 (00:13→23:52)
[2019-11-14 04:35] LABS: Basophils % 0.6 %; Eosinophils # 0.3 K/mcL (0.0-0.6); Eosinophils % 4.9 %; Hematocrit 34.6 % (37.5-50.1); Hemoglobin 11.6 g/dL (12.9-16.9); Immature Granulocytes % 0.5 % (0-4); Lymphocytes # 0.8 K/mcL (0.6-4.6); Lymphocytes % 11.7 %; Mean Corpuscular HGB Conc 33.5 g/dL (31.6-35.5); Mean Corpuscular Hemoglobin 27.6 pg (28.0-33.3); Mean Corpuscular Volume 82.4 fL (83.0-100.0); Mean Platelet Volume 8.9 fL (9.4-12.4); Monocytes # 0.6 K/mcL (0.0-1.3); Monocytes % 9.9 %; Neutrophils # 4.7 K/mcL (1.6-8.9); Platelet Count 256 K/mcL (140-400); Red Cell Distribution Width 14.3 % (11.5-14.5); Segmented Neutrophils % 72.4 %; White Blood Count 6.5 K/mcL (4.3-11.1)
[2019-11-14 04:39] LABS: INR 1.2; Prothrombin Time 13.5 Seconds (9.4-12.1)
[2019-11-14 04:54] LABS: Calcium 8.9 mg/dL (8.6-10.3); Potassium 3.2 mEq/L (3.5-5.1)
[2019-11-14] MEDS ORDERED: 0.9 % Sodium Chloride 250 ML IVC PRN (07:08)
[2019-11-14] MEDS ORDERED: 0.9 % Sodium Chloride 2,000 ML ONE (07:23)
[2019-11-14] MEDS: Aspirin Enteric Coated 81 MG Tablet PO SCH (07:51)
[2019-11-14] MEDS: Benzonatate 100 MG CAPSULE PO SCH ×3 (07:51→21:58)
[2019-11-14] MEDS: Cholecalciferol (D-3) 1,000 UNIT (25MCG) TABLET PO SCH (07:51)
[2019-11-14] MEDS: Insulin LISPRO 300 UNITS/3 ML VIAL SQ SCH ×4 (07:52→21:58)
[2019-11-14] MEDS: Isosorbide MONOnitrate (24 HR) 60 MG TAB.ER.24H PO SCH (07:53)
[2019-11-14] MEDS: Furosemide 40 MG TABLET PO SCH ×2 (07:53→15:49)
[2019-11-14] MEDS: Carbidopa/Levodopa 25/100 TABLET PO SCH ×3 (07:55→15:49)
[2019-11-14] MEDS ORDERED: *HR* Heparin 10,000 UNIT/10 ML VIAL IV PRN (10:58)
[2019-11-14] MEDS: *HR* OxyCODONE Immed Rel 5 MG TABLET PO PRN ×2 (13:20→23:42)
[2019-11-15] MEDS: Ipratropium/Albuterol Neb 3 ML IH SCH ×5 (03:34→19:56)
[2019-11-15 03:53] LABS: INR 1.2; Prothrombin Time 14.1 Seconds (9.4-12.1)
[2019-11-15] MEDS: Heparin 25,000 UNIT/250 ML D5W 25,000 UNIT/250 ML IV.SOLN IVC SCH ×2 (04:56→22:17)
[2019-11-15] MEDS: *HR* OxyCODONE Immed Rel 5 MG TABLET PO PRN ×3 (05:13→21:58)
[2019-11-15] MEDS ORDERED: 0.9 % Sodium Chloride 250 ML IVC PRN (07:13)
[2019-11-15] MEDS: Insulin LISPRO 300 UNITS/3 ML VIAL SQ SCH ×4 (09:13→21:56)
[2019-11-15] MEDS: Aspirin Enteric Coated 81 MG Tablet PO SCH (09:13)
[2019-11-15] MEDS: Furosemide 40 MG TABLET PO SCH ×2 (09:14→17:02)
[2019-11-15] MEDS: Cholecalciferol (D-3) 1,000 UNIT (25MCG) TABLET PO SCH (09:14)
[2019-11-15] MEDS: Isosorbide MONOnitrate (24 HR) 60 MG TAB.ER.24H PO SCH (09:14)
[2019-11-15] MEDS: Benzonatate 100 MG CAPSULE PO SCH ×3 (09:14→21:58)
[2019-11-15] MEDS: Carbidopa/Levodopa 25/100 TABLET PO SCH ×3 (09:14→17:02)
[2019-11-15] MEDS ORDERED: Lidocaine/EPI 1:100k 1% 50 ML VIAL ONE (11:33)
[2019-11-15] MEDS ORDERED: Heparin 1,000 UNITS/500 mL 500 ML ONE (11:33)
[2019-11-15] MEDS ORDERED: CeFAZolin 2,000 MG/50 ML BAG IVPB ONE (11:58)
[2019-11-15 22:46] LABS: Calcium 8.9 mg/dL (8.6-10.3); Potassium 3.3 mEq/L (3.5-5.1)
[2019-11-15] MEDS: *HR* Heparin 5,000 UNIT/ML VIAL IVP PRN (23:37)
[2019-11-16] MEDS: Ipratropium/Albuterol Neb 3 ML IH SCH ×6 (00:22→20:05)
[2019-11-16 05:48] LABS: Bilirubin,Urine Negative (Negative); Blood,Urine Moderate (Negative); Clarity,Urine Cloudy (Clear); Color,Urine Yellow (Yellow); Glucose,Urine (UA) Normal (Normal); Ketones,Urine Negative (Negative); Leukocyte Esterase,Urine Small (Negative); Nitrite,Urine Negative (Negative); PH,Urine 5.5 pH Units (5.0-8.0); Protein,Urine 30 mg/dL (Neg-Trace); Specific Gravity,Urine 1.017 (1.010-1.025); Urobilinogen,Urine Normal (Normal)
[2019-11-16 05:59] LABS: Bacteria,Urine Moderate per hpf (None-Few); Squamous Epithelial Cell,Urine Moderate per lpf (None-Few)
[2019-11-16 06:38] LABS: Basophils % 0.4 %; Eosinophils # 0.4 K/mcL (0.0-0.6); Eosinophils % 3.7 %; Hematocrit 34.9 % (37.5-50.1); Hemoglobin 11.8 g/dL (12.9-16.9); Immature Granulocytes % 0.5 % (0-4); Lymphocytes # 0.8 K/mcL (0.6-4.6); Lymphocytes % 8.3 %; Mean Corpuscular HGB Conc 33.8 g/dL (31.6-35.5); Mean Corpuscular Hemoglobin 27.3 pg (28.0-33.3); Mean Corpuscular Volume 80.8 fL (83.0-100.0); Mean Platelet Volume 9.2 fL (9.4-12.4); Monocytes % 9.6 %; Platelet Count 273 K/mcL (140-400); Red Blood Count 4.32 M/mcL (4.19-5.50); Red Cell Distribution Width 14.2 % (11.5-14.5); Segmented Neutrophils % 77.5 %
[2019-11-16 06:41] LABS: Neutrophils # 7.7 K/mcL (1.6-8.9); White Blood Count 9.9 K/mcL (4.3-11.1)
[2019-11-16 06:43] LABS: INR 1.3
[2019-11-16 06:57] LABS: Calcium 8.9 mg/dL (8.6-10.3); Potassium 3.3 mEq/L (3.5-5.1)
[2019-11-16] MEDS ORDERED: 0.9 % Sodium Chloride 250 ML IVC PRN (07:10)
[2019-11-16] MEDS: Heparin 25,000 UNIT/250 ML D5W 25,000 UNIT/250 ML IV.SOLN IVC SCH ×2 (07:46→17:16)
[2019-11-16] MEDS: Furosemide 40 MG TABLET PO SCH ×2 (08:03→17:16)
[2019-11-16] MEDS: Isosorbide MONOnitrate (24 HR) 60 MG TAB.ER.24H PO SCH (08:03)
[2019-11-16] MEDS: Aspirin Enteric Coated 81 MG Tablet PO SCH (08:03)
[2019-11-16] MEDS: Cholecalciferol (D-3) 1,000 UNIT (25MCG) TABLET PO SCH (08:03)
[2019-11-16] MEDS: Benzonatate 100 MG CAPSULE PO SCH ×3 (08:03→21:14)
[2019-11-16] MEDS: Carbidopa/Levodopa 25/100 TABLET PO SCH ×3 (08:04→17:16)
[2019-11-16] MEDS: Insulin LISPRO 300 UNITS/3 ML VIAL SQ SCH ×4 (08:06→21:14)
[2019-11-16] MEDS ORDERED: *HR* Heparin 10,000 UNIT/10 ML VIAL IV PRN (11:10)
[2019-11-17] MEDS: Ipratropium/Albuterol Neb 3 ML IH SCH (00:02)
[2019-11-17] MEDS: Heparin 25,000 UNIT/250 ML D5W 25,000 UNIT/250 ML IV.SOLN IVC SCH ×2 (01:49→16:58)
[2019-11-17] MEDS ORDERED: Ipratropium/Albuterol Neb 3 ML IH PRN (02:37)
[2019-11-17 05:33] LABS: Basophils # 0.1 K/mcL (0.0-0.2); Basophils % 0.5 %; Eosinophils # 0.7 K/mcL (0.0-0.6); Eosinophils % 6.2 %; Hematocrit 36.7 % (37.5-50.1); Hemoglobin 12.2 g/dL (12.9-16.9); Immature Granulocytes % 0.8 % (0-4); Lymphocytes # 0.9 K/mcL (0.6-4.6); Lymphocytes % 8.3 %; Mean Corpuscular HGB Conc 33.2 g/dL (31.6-35.5); Mean Corpuscular Hemoglobin 26.6 pg (28.0-33.3); Mean Platelet Volume 8.9 fL (9.4-12.4); Monocytes % 9.1 %; Neutrophils # 8.6 K/mcL (1.6-8.9); Platelet Count 316 K/mcL (140-400); Red Blood Count 4.59 M/mcL (4.19-5.50); Red Cell Distribution Width 14.4 % (11.5-14.5); Segmented Neutrophils % 75.1 %; White Blood Count 11.4 K/mcL (4.3-11.1)
[2019-11-17 05:34] LABS: INR 1.3
[2019-11-17 05:59] LABS: Calcium 9.3 mg/dL (8.6-10.3); Potassium 3.3 mEq/L (3.5-5.1)
[2019-11-17] MEDS: Aspirin Enteric Coated 81 MG Tablet PO SCH (08:19)
[2019-11-17] MEDS: Benzonatate 100 MG CAPSULE PO SCH ×3 (08:19→20:31)
[2019-11-17] MEDS: Isosorbide MONOnitrate (24 HR) 60 MG TAB.ER.24H PO SCH (08:19)
[2019-11-17] MEDS: Furosemide 40 MG TABLET PO SCH ×2 (08:19→16:57)
[2019-11-17] MEDS: Insulin LISPRO 300 UNITS/3 ML VIAL SQ SCH ×4 (08:19→20:31)
[2019-11-17] MEDS: Cholecalciferol (D-3) 1,000 UNIT (25MCG) TABLET PO SCH (08:19)
[2019-11-17] MEDS: Carbidopa/Levodopa 25/100 TABLET PO SCH ×3 (08:20→16:57)
[2019-11-17] MEDS ORDERED: 0.9 % Sodium Chloride 500 ML ONE (12:20)
[2019-11-17] MEDS ORDERED: *HR* Midazolam HCl 2 MG/2 ML VIAL IVP ONE (12:31)
[2019-11-17] MEDS ORDERED: *HR* FentaNYL (PF) 100 MCG/2 ML VIAL IVP ONE (12:31)
[2019-11-17] MEDS: *HR* Heparin 5,000 UNIT/ML VIAL IVP PRN (14:20)
[2019-11-18] MEDS: Heparin 25,000 UNIT/250 ML D5W 25,000 UNIT/250 ML IV.SOLN IVC SCH (01:51)
[2019-11-18 06:00] LABS: Basophils # 0.1 K/mcL (0.0-0.2); Basophils % 0.6 %; Eosinophils # 0.7 K/mcL (0.0-0.6); Eosinophils % 7.6 %; Hematocrit 32.9 % (37.5-50.1); Hemoglobin 11.3 g/dL (12.9-16.9); Immature Granulocytes % 0.8 % (0-4); Lymphocytes % 11.6 %; Mean Corpuscular HGB Conc 34.3 g/dL (31.6-35.5); Mean Corpuscular Hemoglobin 27.7 pg (28.0-33.3); Mean Corpuscular Volume 80.6 fL (83.0-100.0); Mean Platelet Volume 8.9 fL (9.4-12.4); Monocytes % 11.5 %; Neutrophils # 5.8 K/mcL (1.6-8.9); Platelet Count 285 K/mcL (140-400); Red Blood Count 4.08 M/mcL (4.19-5.50); Red Cell Distribution Width 14.3 % (11.5-14.5); Segmented Neutrophils % 67.9 %; White Blood Count 8.5 K/mcL (4.3-11.1)
[2019-11-18 06:01] LABS: INR 1.3; Prothrombin Time 14.6 Seconds (9.4-12.1)
[2019-11-18 06:16] LABS: Calcium 9.1 mg/dL (8.6-10.3); Potassium 3.1 mEq/L (3.5-5.1)
[2019-11-18] MEDS ORDERED: 0.9 % Sodium Chloride 250 ML IVC PRN (06:47)
[2019-11-18] MEDS ORDERED: 0.9 % Sodium Chloride 1,000 ML PRIME SCH (07:00)
[2019-11-18] MEDS ORDERED: 0.9 % Sodium Chloride 1,000 ML ONE (07:37)
[2019-11-18] MEDS: Insulin LISPRO 300 UNITS/3 ML VIAL SQ SCH ×3 (08:44→16:49)
[2019-11-18] MEDS ORDERED: *HR* Heparin 10,000 UNIT/10 ML VIAL IV PRN (11:25)
[2019-11-18] MEDS: Carbidopa/Levodopa 25/100 TABLET PO SCH ×3 (13:52→16:48)
[2019-11-18] MEDS: Benzonatate 100 MG CAPSULE PO SCH ×2 (13:53→13:59)
[2019-11-18] MEDS: Furosemide 40 MG TABLET PO SCH ×2 (13:53→16:48)
[2019-11-18] MEDS: Cholecalciferol (D-3) 1,000 UNIT (25MCG) TABLET PO SCH (13:59)
[2019-11-18] MEDS: Isosorbide MONOnitrate (24 HR) 60 MG TAB.ER.24H PO SCH (13:59)
[2019-11-18] MEDS: Aspirin Enteric Coated 81 MG Tablet PO SCH (14:04)
[2019-11-18 16:40] VITALS: BP 109/69
[2019-11-18] MEDS ORDERED: *HR* Warfarin 4 MG TABLET PO ONE (18:00)
== END 2019-11-18 18:22 | DRG 871 ==
LOC: EMEROOARM 15:45 → SUATTDRO 19:35 → ICNU 19:35 → 2ANU 11-05 16:37
PROVIDERS: ADMIT Student in an Organized Health Care Education/Training Program; ATTEND Family Medicine

== ENCOUNTER 2020-01-18 04:12 | Inpatient (IN) ==
[2020-01-18] MEDS ORDERED: methylPREDNISolone 125 MG/2 ML VIAL IVP ONE (04:23)
[2020-01-18] MEDS ORDERED: Ipratropium/Albuterol Neb 3 ML IH ONE (04:30)
[2020-01-18] MEDS ORDERED: Furosemide 40 MG/4 ML VIAL IVP ONE (04:41)
[2020-01-18] MEDS ORDERED: Ipratropium 1 PUFF INHALER IH ONE (04:54)
[2020-01-18 05:11] LABS: Basophils # 0.1 K/mcL (0.0-0.2); Basophils % 0.6 %; Eosinophils # 0.3 K/mcL (0.0-0.6); Eosinophils % 3.1 %; Hematocrit 32.3 % (37.5-50.1); Hemoglobin 10.4 g/dL (12.9-16.9); Immature Granulocytes % 0.2 % (0-4); Lymphocytes # 0.9 K/mcL (0.6-4.6); Lymphocytes % 10.6 %; Mean Corpuscular HGB Conc 32.2 g/dL (31.6-35.5); Mean Corpuscular Hemoglobin 27.1 pg (28.0-33.3); Mean Corpuscular Volume 84.1 fL (83.0-100.0); Monocytes # 0.6 K/mcL (0.0-1.3); Monocytes % 6.7 %; Neutrophils # 6.6 K/mcL (1.6-8.9); Platelet Count 194 K/mcL (140-400); Red Blood Count 3.84 M/mcL (4.19-5.50); Segmented Neutrophils % 78.8 %; White Blood Count 8.4 K/mcL (4.3-11.1)
[2020-01-18 05:13] LABS: INR 1.5; Prothrombin Time 16.7 Seconds (9.4-12.1)
[2020-01-18 05:15] LABS: Activated Partial Thrombo Time 43.4 Seconds (26.0-36.0)
[2020-01-18 05:30] LABS: Alanine Aminotransferase 3 Units/L (7-52); Albumin 4.1 g/dL (3.5-5.7); Albumin/Globulin Ratio 1.2 (1.1-2.2); Alkaline Phosphatase 157 Units/L (34-104); Aspartate Amino Transferase 8 Units/L (13-39); BUN/Creatinine Ratio 19 (6-26); Bilirubin,Total 1.4 mg/dL (0.3-1.0); Blood Urea Nitrogen 30 mg/dL (8-23); Calcium 9.7 mg/dL (8.6-10.3); Carbon Dioxide 27 mEq/L (23-29); Chloride 97 mEq/L (98-107); Globulin 3.4 g/dL (2.4-3.5); Glucose 134 mg/dL (70-105); Osmolality,Calculated 288 (280-300); Potassium 3.9 mEq/L (3.5-5.1); Sodium 135 mEq/L (136-145); Total Protein 7.5 g/dL (6.4-8.9); Troponin I < 0.03 ng/mL (< 0.04); eGFR For African Americans 54 (> 60); eGFR For Non-African Americans 44 (> 60)
[2020-01-18 05:42] LABS: Platelet Estimate Normal (Normal)
[2020-01-18] MEDS ORDERED: Naloxone 0.4 MG/ML INJ IVP PRN (06:11)
[2020-01-18] MEDS ORDERED: *HR* Dextrose 50 % in Water (Syg) 50 ML SYRINGE IVP PRN (06:14)
[2020-01-18] MEDS ORDERED: D5% in Water 1,000 ML IVC PRN (06:14)
[2020-01-18] MEDS ORDERED: *HR* Labetalol 20 MG/4 ML SYRINGE IVP PRN (06:14)
[2020-01-18] MEDS ORDERED: Dextrose Gel 15 GM/37.5 ML TUBE PO PRN ×2 (06:14)
[2020-01-18] MEDS ORDERED: Albuterol 2.5 MG/3 ML NEBULIZER IH PRN (06:16)
[2020-01-18 06:32] LABS: Bilirubin,Urine Negative (Negative); Blood,Urine Small (Negative); Clarity,Urine Cloudy (Clear); Color,Urine Yellow (Yellow); Glucose,Urine (UA) Normal (Normal); Ketones,Urine Negative (Negative); Leukocyte Esterase,Urine Small (Negative); Nitrite,Urine Negative (Negative); PH,Urine 5.5 pH Units (5.0-8.0); Protein,Urine 100 mg/dL (Neg-Trace); Specific Gravity,Urine 1.016 (1.010-1.025); Urobilinogen,Urine Normal (Normal)
[2020-01-18 06:34] LABS: Bacteria,Urine None Seen per hpf (None-Few); Hyaline Casts,Urine None Seen per lpf (None-Few); Squamous Epithelial Cell,Urine Many per lpf (None-Few)
[2020-01-18] MEDS: Insulin LISPRO 300 UNITS/3 ML VIAL SQ SCH ×4 (08:23→19:57)
[2020-01-18] MEDS: Carbidopa/Levodopa 25/100 TABLET PO SCH ×4 (08:24→19:31)
[2020-01-18] MEDS: Aspirin Enteric Coated 81 MG Tablet PO SCH (08:24)
[2020-01-18] MEDS: Isosorbide MONOnitrate (24 HR) 60 MG TAB.ER.24H PO SCH (08:26)
[2020-01-18] MEDS: Gabapentin 300 MG CAPSULE PO SCH ×2 (08:26→19:31)
[2020-01-18] MEDS: Furosemide 40 MG/4 ML VIAL IVP SCH ×2 (08:27→19:31)
[2020-01-18 10:25] LABS: Hepatitis B Surface Antibody < 3.10 mIU/mL
[2020-01-18 10:31] LABS: Estimated Average Glucose 105 mg/dl
[2020-01-18 10:36] LABS: Hepatitis B Surface Antigen Nonreactive (Nonreactive)
[2020-01-18] MEDS ORDERED: Ipratropium/Albuterol Neb 3 ML IH SCH (11:00)
[2020-01-18] MEDS: hydrALAZINE 25 MG TABLET PO SCH ×3 (16:26→23:47)
[2020-01-18] MEDS: Azithromycin 250 MG TABLET PO SCH (16:27)
[2020-01-18] MEDS ORDERED: Warfarin perPT PO PRN (18:00)
[2020-01-18] MEDS: Apixaban 5 MG TABLET PO SCH (19:32)
[2020-01-19 05:37] LABS: Basophils % 0.3 %; Eosinophils % 0.5 %; Hematocrit 27.7 % (37.5-50.1); Immature Granulocytes % 0.5 % (0-4); Lymphocytes # 1.3 K/mcL (0.6-4.6); Lymphocytes % 22.4 %; Mean Corpuscular HGB Conc 32.5 g/dL (31.6-35.5); Mean Corpuscular Hemoglobin 27.4 pg (28.0-33.3); Mean Corpuscular Volume 84.2 fL (83.0-100.0); Monocytes # 0.5 K/mcL (0.0-1.3); Neutrophils # 3.9 K/mcL (1.6-8.9); Platelet Count 172 K/mcL (140-400); Red Blood Count 3.29 M/mcL (4.19-5.50); Segmented Neutrophils % 67.3 %; White Blood Count 5.9 K/mcL (4.3-11.1)
[2020-01-19 05:57] LABS: Alanine Aminotransferase < 3 Units/L (7-52); Albumin 3.8 g/dL (3.5-5.7); Albumin/Globulin Ratio 1.3 (1.1-2.2); Alkaline Phosphatase 126 Units/L (34-104); Aspartate Amino Transferase 6 Units/L (13-39); BUN/Creatinine Ratio 21 (6-26); Blood Urea Nitrogen 39 mg/dL (8-23); Calcium 9.1 mg/dL (8.6-10.3); Carbon Dioxide 31 mEq/L (23-29); Chloride 96 mEq/L (98-107); Glucose 141 mg/dL (70-105); Osmolality,Calculated 292 (280-300); Phosphorous 4.2 mg/dL (2.7-4.5); Potassium 3.6 mEq/L (3.5-5.1); Sodium 135 mEq/L (136-145); Total Protein 6.8 g/dL (6.4-8.9); eGFR For African Americans 44 (> 60); eGFR For Non-African Americans 36 (> 60)
[2020-01-19] MEDS: Azithromycin 250 MG TABLET PO SCH (08:18)
[2020-01-19] MEDS: Gabapentin 300 MG CAPSULE PO SCH ×2 (08:18→21:57)
[2020-01-19] MEDS: Furosemide 40 MG/4 ML VIAL IVP SCH (08:18)
[2020-01-19] MEDS: Aspirin Enteric Coated 81 MG Tablet PO SCH (08:18)
[2020-01-19] MEDS: Isosorbide MONOnitrate (24 HR) 60 MG TAB.ER.24H PO SCH (08:20)
[2020-01-19] MEDS: hydrALAZINE 25 MG TABLET PO SCH ×2 (08:20→17:29)
[2020-01-19] MEDS: Apixaban 5 MG TABLET PO SCH ×2 (08:20→21:58)
[2020-01-19] MEDS: Carbidopa/Levodopa 25/100 TABLET PO SCH ×4 (08:22→21:58)
[2020-01-19] MEDS: Insulin LISPRO 300 UNITS/3 ML VIAL SQ SCH ×4 (08:23→22:12)
[2020-01-20] MEDS: hydrALAZINE 25 MG TABLET PO SCH ×2 (00:47→08:42)
[2020-01-20 04:47] LABS: Basophils # 0.1 K/mcL (0.0-0.2); Basophils % 0.8 %; Eosinophils # 0.3 K/mcL (0.0-0.6); Eosinophils % 4.1 %; Hematocrit 27.8 % (37.5-50.1); Hemoglobin 9.1 g/dL (12.9-16.9); Immature Granulocytes % 0.3 % (0-4); Lymphocytes # 1.4 K/mcL (0.6-4.6); Lymphocytes % 22.1 %; Mean Corpuscular HGB Conc 32.7 g/dL (31.6-35.5); Mean Corpuscular Hemoglobin 27.7 pg (28.0-33.3); Mean Corpuscular Volume 84.8 fL (83.0-100.0); Mean Platelet Volume 9.1 fL (9.4-12.4); Monocytes # 0.5 K/mcL (0.0-1.3); Monocytes % 8.5 %; Neutrophils # 3.9 K/mcL (1.6-8.9); Platelet Count 188 K/mcL (140-400); Red Blood Count 3.28 M/mcL (4.19-5.50); Red Cell Distribution Width 15.9 % (11.5-14.5); Segmented Neutrophils % 64.2 %; White Blood Count 6.1 K/mcL (4.3-11.1)
[2020-01-20] MEDS ORDERED: *HR* OxyCODONE/APAP 5/325 TABLET PO PRN (04:56)
[2020-01-20 05:04] LABS: Calcium 8.8 mg/dL (8.6-10.3); Phosphorous 3.7 mg/dL (2.7-4.5); Potassium 3.7 mEq/L (3.5-5.1)
[2020-01-20] MEDS: Azithromycin 250 MG TABLET PO SCH (08:41)
[2020-01-20] MEDS: Gabapentin 300 MG CAPSULE PO SCH (08:42)
[2020-01-20] MEDS: Aspirin Enteric Coated 81 MG Tablet PO SCH (08:42)
[2020-01-20] MEDS: Apixaban 5 MG TABLET PO SCH (08:42)
[2020-01-20] MEDS: Isosorbide MONOnitrate (24 HR) 60 MG TAB.ER.24H PO SCH (08:42)
[2020-01-20] MEDS: Insulin LISPRO 300 UNITS/3 ML VIAL SQ SCH ×2 (08:44→12:37)
[2020-01-20] MEDS: Carbidopa/Levodopa 25/100 TABLET PO SCH ×2 (08:49→12:37)
[2020-01-20] MEDS ORDERED: Furosemide 40 MG/4 ML VIAL IVP SCH (09:00)
[2020-01-20 10:35] VITALS: BP 127/68
== END 2020-01-20 13:15 | disposition home health service (06) | DRG 291 ==
LOC: EMEROOARM 04:12 → 2NENU 04:12 → SUATTDRO 01-19 07:47 → 3ANU 01-19 20:13
PROVIDERS: ADMIT Internal Medicine; ATTEND Internal Medicine

== ENCOUNTER 2020-02-29 18:59 | Inpatient (IN) ==
[2020-02-29] MEDS ORDERED: Naloxone 0.4 MG/ML INJ IVP PRN (22:48)
[2020-02-29 23:27] LABS: ABG Base Excess 6 mEq/L (-2 to 3); ABG HCO3 32 mEq/L (21-27); ABG Oxygen Saturation 100 % (95-98); ABG PCO2 51 mmHg (35-45); ABG PH 7.41 pH Units (7.32-7.45); ABG PO2 357 mmHg (85-104); ABG TCO2 33 mEq/L (20-26); Blood Gas Modality AF; Blood Gas VT 500 cc
[2020-02-29] MEDS: FentaNYL (PF) 1,000 MCG/100 ML IV.SOLN IVC SCH (23:52)
[2020-02-29] MEDS ORDERED: *HR* Heparin 5,000 UNIT/ML VIAL IVP PRN (23:53)
[2020-03-01] MEDS ORDERED: *HR* Heparin 5,000 UNIT/ML VIAL SQ SCH
[2020-03-01] MEDS ORDERED: Artificial Tears SOLN 15 ML BOTTLE BOTH EYES PRN (00:04)
[2020-03-01] MEDS ORDERED: Dextrose Gel 15 GM/37.5 ML TUBE PO PRN ×2 (00:20)
[2020-03-01] MEDS ORDERED: *HR* Dextrose 50 % in Water (Vial) 50 ML VIAL IVP PRN (00:20)
[2020-03-01] MEDS ORDERED: D5% in Water 1,000 ML IVC PRN (00:20)
[2020-03-01] MEDS: Amiodarone Premix 360 MG/200 ML BAG IVC SCH ×2 (00:24→12:01)
[2020-03-01] MEDS: Chlorhexidine Rinse 15 ML MOUTHWASH MM SCH ×3 (00:32→20:52)
[2020-03-01] MEDS: Artificial Tears SOLN 15 ML BOTTLE BOTH EYES SCH ×5 (00:32→20:52)
[2020-03-01] MEDS: Pantoprazole 40 MG VIAL IVP SCH ×2 (00:32→08:08)
[2020-03-01 00:48] LABS: Hematocrit 26.2 % (37.5-50.1); Hemoglobin 8.3 g/dL (12.9-16.9); Mean Corpuscular HGB Conc 31.7 g/dL (31.6-35.5); Mean Corpuscular Hemoglobin 26.2 pg (28.0-33.3); Mean Corpuscular Volume 82.6 fL (83.0-100.0); Mean Platelet Volume 8.9 fL (9.4-12.4); Platelet Count 161 K/mcL (140-400); Red Blood Count 3.17 M/mcL (4.19-5.50); Red Cell Distribution Width 15.9 % (11.5-14.5); White Blood Count 7.2 K/mcL (4.3-11.1)
[2020-03-01 00:49] LABS: INR 1.8
[2020-03-01 00:52] LABS: Activated Partial Thrombo Time 55.6 Seconds (26.0-36.0)
[2020-03-01 01:00] LABS: Calcium 8.5 mg/dL (8.6-10.3); Magnesium 1.9 mg/dL (1.6-2.6); Phosphorous 4.2 mg/dL (2.7-4.5); Potassium 3.8 mEq/L (3.5-5.1)
[2020-03-01] MEDS: Heparin 25,000 UNIT/250 ML D5W 25,000 UNIT/250 ML IV.SOLN IVC SCH ×2 (01:07→15:30)
[2020-03-01 04:21] LABS: ABG Base Excess 6 mEq/L (-2 to 3); ABG HCO3 31 mEq/L (21-27); ABG Oxygen Saturation 100 % (95-98); ABG PCO2 45 mmHg (35-45); ABG PH 7.44 pH Units (7.32-7.45); ABG PO2 186 mmHg (85-104); ABG TCO2 32 mEq/L (20-26); Blood Gas Modality VC; Blood Gas VT 500 cc
[2020-03-01 05:48] LABS: VBG Ionized Calcium 1.07 mmol/L (1.15-1.35)
[2020-03-01 05:50] LABS: Basophils % 0.3 %; Eosinophils % 0.3 %; Hematocrit 25.3 % (37.5-50.1); Hemoglobin 7.8 g/dL (12.9-16.9); Immature Granulocytes % 0.3 % (0-4); Lymphocytes # 0.8 K/mcL (0.6-4.6); Lymphocytes % 11.9 %; Mean Corpuscular HGB Conc 30.8 g/dL (31.6-35.5); Mean Corpuscular Hemoglobin 25.7 pg (28.0-33.3); Mean Corpuscular Volume 83.2 fL (83.0-100.0); Mean Platelet Volume 9.2 fL (9.4-12.4); Monocytes # 0.6 K/mcL (0.0-1.3); Neutrophils # 5.3 K/mcL (1.6-8.9); Platelet Count 160 K/mcL (140-400); Red Blood Count 3.04 M/mcL (4.19-5.50); Red Cell Distribution Width 16.1 % (11.5-14.5); Segmented Neutrophils % 78.2 %; White Blood Count 6.8 K/mcL (4.3-11.1)
[2020-03-01 06:41] LABS: Albumin 3.3 g/dL (3.5-5.7); Albumin/Globulin Ratio 1.4 (1.1-2.2); Bilirubin,Total 0.9 mg/dL (0.3-1.0); Calcium 8.7 mg/dL (8.6-10.3); Globulin 2.4 g/dL (2.4-3.5); Magnesium 1.9 mg/dL (1.6-2.6); Potassium 3.8 mEq/L (3.5-5.1); Total Protein 5.7 g/dL (6.4-8.9)
[2020-03-01] MEDS: Insulin LISPRO 300 UNITS/3 ML VIAL SQ SCH ×3 (06:49→18:04)
[2020-03-01] MEDS ORDERED: Perflutren Lipid Microsphere 1.3 ML in 0.9 % Sodium Chloride 8.7 ML IVP ONE (07:08)
[2020-03-01 10:50] LABS: Hematocrit 30.3 % (37.5-50.1)
[2020-03-01] MEDS: Valproic Acid INJ 250 MG in 0.9 % Sodium Chloride 100 ML IVPB SCH ×3 (10:50→22:32)
[2020-03-01 10:52] LABS: Hemoglobin 9.6 g/dL (12.9-16.9)
[2020-03-01] MEDS: FentaNYL (PF) 1,000 MCG/100 ML IV.SOLN IVC SCH (13:43)
[2020-03-01] MEDS ORDERED: Acetaminophen 325 MG TABLET PO PRN (16:52)
[2020-03-01] MEDS ORDERED: Vancomycin 1,750 MG in 0.9 % Sodium Chloride 250 ML IVPB SCH (17:00)
[2020-03-01] MEDS ORDERED: Vancomycin 1,750 MG/517.5 ML IV.SOLN IVPB ONE (18:00)
[2020-03-01] MEDS: Piperacillin/Tazobactam 3.375 GM in 0.9 % Sodium Chloride Mini Bag 100 ML IVPB SCH (18:04)
[2020-03-02] MEDS: Insulin LISPRO 300 UNITS/3 ML VIAL SQ SCH ×4 (00:21→18:15)
[2020-03-02] MEDS: Artificial Tears SOLN 15 ML BOTTLE BOTH EYES SCH ×6 (00:21→20:31)
[2020-03-02] MEDS: Amiodarone Premix 360 MG/200 ML BAG IVC SCH ×2 (00:55→14:32)
[2020-03-02] MEDS: Piperacillin/Tazobactam 3.375 GM in 0.9 % Sodium Chloride Mini Bag 100 ML IVPB SCH ×3 (01:50→18:17)
[2020-03-02 04:13] LABS: Basophils # 0.1 K/mcL (0.0-0.2); Basophils % 0.6 %; Eosinophils # 0.1 K/mcL (0.0-0.6); Eosinophils % 1.8 %; Hemoglobin 8.3 g/dL (12.9-16.9); Immature Granulocytes % 0.3 % (0-4); Lymphocytes # 0.7 K/mcL (0.6-4.6); Lymphocytes % 9.4 %; Mean Corpuscular HGB Conc 31.9 g/dL (31.6-35.5); Mean Corpuscular Hemoglobin 26.9 pg (28.0-33.3); Mean Corpuscular Volume 84.1 fL (83.0-100.0); Mean Platelet Volume 9.1 fL (9.4-12.4); Monocytes # 0.7 K/mcL (0.0-1.3); Monocytes % 8.6 %; Neutrophils # 6.2 K/mcL (1.6-8.9); Platelet Count 165 K/mcL (140-400); Red Blood Count 3.09 M/mcL (4.19-5.50); Red Cell Distribution Width 16.8 % (11.5-14.5); Segmented Neutrophils % 79.3 %; White Blood Count 7.8 K/mcL (4.3-11.1)
[2020-03-02 04:31] LABS: ABG Base Excess 6 mEq/L (-2 to 3); ABG HCO3 32 mEq/L (21-27); ABG Oxygen Saturation 100 % (95-98); ABG PCO2 57 mmHg (35-45); ABG PH 7.36 pH Units (7.32-7.45); ABG PO2 231 mmHg (85-104); ABG TCO2 34 mEq/L (20-26); Blood Gas Modality VC; Blood Gas VT 450 cc
[2020-03-02 04:33] LABS: Albumin 3.2 g/dL (3.5-5.7); Albumin/Globulin Ratio 1.1 (1.1-2.2); Bilirubin,Total 0.8 mg/dL (0.3-1.0); Calcium 8.3 mg/dL (8.6-10.3); Globulin 2.8 g/dL (2.4-3.5); Potassium 3.6 mEq/L (3.5-5.1)
[2020-03-02 04:41] LABS: Magnesium 1.9 mg/dL (1.6-2.6)
[2020-03-02] MEDS: Valproic Acid INJ 250 MG in 0.9 % Sodium Chloride 100 ML IVPB SCH (05:06)
[2020-03-02] MEDS ORDERED: Vancomycin 1,750 MG/517.5 ML IV.SOLN IVPB SCH (06:00)
[2020-03-02] MEDS: Heparin 25,000 UNIT/250 ML D5W 25,000 UNIT/250 ML IV.SOLN IVC SCH (06:27)
[2020-03-02] MEDS: Pantoprazole 40 MG VIAL IVP SCH (07:45)
[2020-03-02] MEDS: Chlorhexidine Rinse 15 ML MOUTHWASH MM SCH ×2 (07:45→20:31)
[2020-03-02] MEDS: FentaNYL (PF) 1,000 MCG/100 ML IV.SOLN IVC SCH ×2 (07:52→19:08)
[2020-03-02] MEDS ORDERED: Potassium Chloride Elixir 20 MEQ/15 ML UDC GTUBE ONE ×2 (08:43→11:10)
[2020-03-02 12:11] LABS: Heparin anti-factor XA UFH 0.61 IU/mL (0.30-0.70)
[2020-03-02] MEDS: VALPROIC ACID IVPB SCH ×2 (12:22→16:57)
[2020-03-02] MEDS: SODIUM CHLORIDE 0.9% IVPB SCH ×2 (12:22→16:57)
[2020-03-02] MEDS: *HR* Heparin 5,000 UNIT/ML VIAL IVP PRN (13:29)
[2020-03-03] MEDS: Artificial Tears SOLN 15 ML BOTTLE BOTH EYES SCH ×6 (00:10→20:30)
[2020-03-03] MEDS: SODIUM CHLORIDE 0.9% IVPB SCH ×4 (00:11→17:07)
[2020-03-03] MEDS: VALPROIC ACID IVPB SCH ×4 (00:11→17:07)
[2020-03-03] MEDS: Heparin 25,000 UNIT/250 ML D5W 25,000 UNIT/250 ML IV.SOLN IVC SCH ×2 (00:12→17:47)
[2020-03-03] MEDS: Insulin LISPRO 300 UNITS/3 ML VIAL SQ SCH ×4 (00:16→18:09)
[2020-03-03] MEDS: Piperacillin/Tazobactam 3.375 GM in 0.9 % Sodium Chloride Mini Bag 100 ML IVPB SCH ×3 (02:10→17:48)
[2020-03-03] MEDS: Amiodarone Premix 360 MG/200 ML BAG IVC SCH ×2 (02:59→15:57)
[2020-03-03 03:45] LABS: Basophils % 0.4 %; Eosinophils # 0.5 K/mcL (0.0-0.6); Eosinophils % 6.3 %; Hematocrit 25.2 % (37.5-50.1); Hemoglobin 7.6 g/dL (12.9-16.9); Immature Granulocytes % 0.4 % (0-4); Lymphocytes # 0.5 K/mcL (0.6-4.6); Lymphocytes % 6.3 %; Mean Corpuscular HGB Conc 30.2 g/dL (31.6-35.5); Mean Corpuscular Volume 86.3 fL (83.0-100.0); Mean Platelet Volume 9.6 fL (9.4-12.4); Monocytes # 0.7 K/mcL (0.0-1.3); Monocytes % 9.5 %; Neutrophils # 5.7 K/mcL (1.6-8.9); Platelet Count 154 K/mcL (140-400); Red Blood Count 2.92 M/mcL (4.19-5.50); Red Cell Distribution Width 16.9 % (11.5-14.5); Segmented Neutrophils % 77.1 %; White Blood Count 7.4 K/mcL (4.3-11.1)
[2020-03-03 04:06] LABS: Albumin/Globulin Ratio 1.1 (1.1-2.2); Bilirubin,Total 0.8 mg/dL (0.3-1.0); Calcium 7.8 mg/dL (8.6-10.3); Globulin 2.7 g/dL (2.4-3.5); Potassium 4.1 mEq/L (3.5-5.1); Total Protein 5.7 g/dL (6.4-8.9)
[2020-03-03] MEDS: *HR* Heparin 5,000 UNIT/ML VIAL IVP PRN (04:31)
[2020-03-03 04:38] LABS: ABG Base Excess 4 mEq/L (-2 to 3); ABG HCO3 31 mEq/L (21-27); ABG Oxygen Saturation 96 % (95-98); ABG PCO2 58 mmHg (35-45); ABG PH 7.33 pH Units (7.32-7.45); ABG PO2 90 mmHg (85-104); ABG TCO2 33 mEq/L (20-26); Blood Gas VT 450 cc
[2020-03-03] MEDS: Chlorhexidine Rinse 15 ML MOUTHWASH MM SCH ×2 (09:17→20:30)
[2020-03-03] MEDS: Pantoprazole 40 MG VIAL IVP SCH (09:17)
[2020-03-03] MEDS: FentaNYL (PF) 1,000 MCG/100 ML IV.SOLN IVC SCH (22:43)
[2020-03-04] MEDS: Artificial Tears SOLN 15 ML BOTTLE BOTH EYES SCH ×4 (00:52→11:34)
[2020-03-04] MEDS: VALPROIC ACID IVPB SCH ×3 (00:54→12:36)
[2020-03-04] MEDS: SODIUM CHLORIDE 0.9% IVPB SCH ×3 (00:54→12:36)
[2020-03-04] MEDS: Insulin LISPRO 300 UNITS/3 ML VIAL SQ SCH ×3 (00:56→11:36)
[2020-03-04] MEDS: Piperacillin/Tazobactam 3.375 GM in 0.9 % Sodium Chloride Mini Bag 100 ML IVPB SCH ×2 (01:56→10:22)
[2020-03-04] MEDS: Amiodarone Premix 360 MG/200 ML BAG IVC SCH (04:05)
[2020-03-04 04:13] LABS: Basophils % 0.4 %; Eosinophils # 0.4 K/mcL (0.0-0.6); Eosinophils % 7.6 %; Hematocrit 23.8 % (37.5-50.1); Hemoglobin 7.5 g/dL (12.9-16.9); Immature Granulocytes % 0.2 % (0-4); Lymphocytes # 0.4 K/mcL (0.6-4.6); Lymphocytes % 7.2 %; Mean Corpuscular HGB Conc 31.5 g/dL (31.6-35.5); Mean Corpuscular Hemoglobin 26.7 pg (28.0-33.3); Mean Corpuscular Volume 84.7 fL (83.0-100.0); Mean Platelet Volume 9.4 fL (9.4-12.4); Monocytes # 0.6 K/mcL (0.0-1.3); Monocytes % 10.9 %; Neutrophils # 3.8 K/mcL (1.6-8.9); Platelet Count 118 K/mcL (140-400); Red Blood Count 2.81 M/mcL (4.19-5.50); Red Cell Distribution Width 16.8 % (11.5-14.5); Segmented Neutrophils % 73.7 %; White Blood Count 5.1 K/mcL (4.3-11.1)
[2020-03-04 04:16] LABS: ABG Base Excess 1 mEq/L (-2 to 3); ABG HCO3 28 mEq/L (21-27); ABG Oxygen Saturation 97 % (95-98); ABG PCO2 52 mmHg (35-45); ABG PH 7.34 pH Units (7.32-7.45); ABG PO2 93 mmHg (85-104); ABG TCO2 29 mEq/L (20-26); Blood Gas VT 450 cc
[2020-03-04 04:32] LABS: Potassium 4.1 mEq/L (3.5-5.1)
[2020-03-04] MEDS: Heparin 25,000 UNIT/250 ML D5W 25,000 UNIT/250 ML IV.SOLN IVC SCH (07:28)
[2020-03-04] MEDS: Pantoprazole 40 MG VIAL IVP SCH (08:03)
[2020-03-04] MEDS: Chlorhexidine Rinse 15 ML MOUTHWASH MM SCH (08:03)
[2020-03-04 12:15] VITALS: BP 124/60
[2020-03-04] MEDS ORDERED: *HR* LORazepam 2 MG/ML VIAL IVP PRN (12:20)
[2020-03-04] MEDS ORDERED: *HR* Heparin 5,000 UNIT/ML VIAL SQ SCH (18:00)
== END 2020-03-04 12:54 | disposition expired | DRG 208 ==
LOC: CDU → ICNU 23:27
PROVIDERS: ADMIT Pediatrics; ATTEND Pediatrics